=== PATIENT | male | born 1950 | race Caucasian/White ===

== ENCOUNTER → 2025-01-31 13:38 | Outpatient (REF) | payer OTHER, MEDICAID, SELFPAY ==
[2025-02-01 11:12] LABS: ALT (SGPT) 15 U/L (0-50); AST (SGOT) 21 U/L (17-59); Albumin 3.6 g/dl (3.5-5.0); Alkaline Phosphatase 46 U/L (38-126); Blood Urea Nitrogen 12 mg/dl (9-20); Calcium 9.2 mg/dl (8.4-10.2); Carbon Dioxide 26 mmol/L (22-30); Chloride 107 mmol/L (98-107); Glucose 101 mg/dl (70-99); Potassium 4.4 mmol/L (3.5-5.1); Sodium 137 mmol/L (135-145); Total Bilirubin 0.9 mg/dl (0.2-1.3); Total Protein 5.6 g/dl (6.3-8.2); eGFR > 60.00
[2025-02-01 11:50] LABS: Hematocrit 40.1 % (39.0-52.0); Hemoglobin 13.5 g/dL (13.0-18.0); Mean Corpuscular Volume 100.8 fL (80.0-94.0); Red Blood Cell Count 3.98 10^6/uL (4.70-6.10); White Blood Cell Count 9.2 10^3/uL (4.8-10.8)
[2025-02-01 11:51] LABS: Mean Corp Hgb Conc. 33.7 g/dL (33.0-37.0); Mean Corpuscular Hgb 33.9 pg (27.0-31.0); Mean Platelet Volume 11.4 fL (7.4-10.4); Platelet Count 150 10^3/uL (130-400); Red Cell Dist. Width 13.2 % (11.5-14.5)
== END ==
LOC: OLABN 13:38
PROVIDERS: ATTENDING PHYSICIAN Student in an Organized Health Care Education/Training Program
DX: I10 Essential (primary) hypertension (principal)
CPT/HCPCS: 36415; 80053; 85027

== ENCOUNTER → 2025-03-26 10:27 | Outpatient (REF) | payer OTHER, MEDICAID, SELFPAY ==
[2025-03-26 12:19] LABS: Hematocrit 38.6 % (39.0-52.0); Hemoglobin 12.7 g/dL (13.0-18.0); Mean Corp Hgb Conc. 32.9 g/dL (33.0-37.0); Mean Corpuscular Volume 98.5 fL (80.0-94.0); Nucleated Red Blood Cells % 0 % (-); Platelet Count 145 10^3/uL (130-400); Red Cell Dist. Width 13.5 % (11.5-14.5)
[2025-03-26 12:38] LABS: ALT (SGPT) 41 U/L (0-50); AST (SGOT) 23 U/L (17-59); Albumin 3.2 g/dl (3.5-5.0); Alkaline Phosphatase 55 U/L (38-126); Blood Urea Nitrogen 17 mg/dl (9-20); Calcium 8.7 mg/dl (8.4-10.2); Carbon Dioxide 25 mmol/L (22-30); Chloride 106 mmol/L (98-107); Glucose 114 mg/dl (70-99); Potassium 4.3 mmol/L (3.5-5.1); Sodium 137 mmol/L (135-145); Total Protein 5.5 g/dl (6.3-8.2); eGFR > 60.00
== END ==
LOC: OLABN 10:27
PROVIDERS: ATTENDING PHYSICIAN Student in an Organized Health Care Education/Training Program
DX: R50.9 Fever, unspecified (principal)
CPT/HCPCS: 36415; 80053; 85025

== ENCOUNTER 2025-03-26 17:18 | Inpatient (IN) | payer MEDICARE, OTHER, SELFPAY ==
[2025-03-26] VITALS (9 sets, daily range): BP systolic 75–130; BP diastolic 59–81
--- NOTE | 2025-03-26 14:07 | ED.GENMED ---
History of Present Illness
<Celestino Nielson PA-C - Last Filed: 03/26/25 15:56>
General
Chief Complaint: Blood Pressure Problem
Source: patient
Exam Limitations: none
Time Seen by Provider: 03/26/25 13:50
History of Present Illness
History of Present Illness:
74-year-old male with history of dementia presents from nursing facility with complaints of fatigue they noticed tachycardia fever and low blood pressure at the facility. He is a DNR. Patient is apparently at his cognitive baseline but cannot
provide any valuable history secondary to his dementia.
Phy Exam
<Celestino Nielson PA-C - Last Filed: 03/26/25 15:56>
Physical Exam
Physical Exam:
General: Well-developed male no acute respiratory distress
HEENT normocephalic face is symmetric
Heart: Tachycardic but regular lungs: Clear no wheeze
Abdomen is soft nontender
Extremities: No cyanosis
Neurologic exam: Alert oriented to person only following commands
Sepsis
<Celestino Nielson PA-C - Last Filed: 03/26/25 15:56>
Sepsis Screening
Sepsis Assessment: Sepsis
Sepsis Screen
Sepsis Screen: Sepsis
Date: 03/26/25
Time: 15:56
<Dylon Tabares MD - Last Filed: 03/27/25 15:05>
Sepsis Screen
Sepsis Screen: Sepsis
Date: 03/27/25
Time: 15:04
Course
<Celestino Nielson PA-C - Last Filed: 03/26/25 15:56>
Orders/Labs/Results
Orders:
Orders
03/26/25 Lunch
Cholesterol Lowering
At Your Request: Non-Participating
Cholesterol Lowering: Sodium, 2 Gram
03/26/25 13:57
Electrocardiogram (*1) Stat
Comment: ALREADY DONE IN ED
03/26/25 14:05
Straight cath- Treatment ONCE
03/26/25 14:06
CR Chest - 2 Views Urgent
Comment:
Reason For Exam: fever
03/26/25 14:07
CMP [Comprehensive Metabolic Panel] Urgent
COVID-19 Antigen Urgent
Source: Nasal Swab
Complete Blood Count/With Diff Urgent
Lactic Acid Q4H
Comment: CANCEL 2nd LACTIC ACID IF 1st LACTIC ACID IS LESS THAN 2
Troponin I Urgent
Blood Culture Q30M
SHARIFA Source: Blood/Venous
Specimen Description:
Blood Culture Q30M
SHARIFA Source: Blood/Venous
Specimen Description:
03/26/25 14:26
Urinalysis Reflex To Culture Urgent
Date Specimen was Collected: 03/26/25
Time Specimen was Collected: 14:06
Urine Microscopic Reflex Cult Urgent
03/26/25 14:45
0.9% Sodium Chloride 1000 ml [Nss] 1,000 ml IV BOLUS
03/26/25 14:54
Acetaminophen [Tylenol] 1,000 mg PO NOW STA
03/26/25 16:20
CT Chest PE Study Urgent
Comment: hypotension, tachycardia, SOB
Reason For Exam: PE
03/26/25 16:39
Admit/Transfer Patient As Directed
Co-Sign Provider:
Level of Care: Inpatient admission
Assign to:: IMU- Intermediate Care
Physician / Group: Bryanna Harvey - hospitalists
Diagnosis: acute COVID 19, Pneumonia
Reason for Hospitalization: acute COVID 19, Pneumonia
Expected length of stay greater than two midnights?: Yes
ELOS- Estimated Length of Stay in days: 3
I certify the patient meets the requirements for IP care: Yes
PRN Pain Medication Management As Directed
May give lesser potent ordered pain med per pt: Yes
preference::
Protocol:: Medication orders for pain may be administered in a
manner that supports deferring to patient preference
when the pt is:
- Requesting an ordered lesser potent pain medication.
Least to most potent pain medications are defined
as: acetaminophen < NSAID < tramadol < opioids
(morphine, oxycodone, hydromorphone).
- Requesting a lesser dose of the same medication IF
ORDERED.
- Requesting a less intrusive route of administration
if both routes are prescribed by the provider (PO <
IV).
03/26/25 16:40
Code Status As Directed
Resuscitation Status: Do not resuscitate
Reached after discussion with pt or family/Healthcare POA: Yes
DNR Bracelet Application ONCE
03/26/25 17:02
Troponin I Urgent
03/26/25 17:04
0.9% Sodium Chloride 1000 ml [Nss] 1,000 ml IV 100 mls/hr
03/26/25 17:42
Acetaminophen [Tylenol] 650 mg PO Q4HPRN PRN
Albuterol [ProAIR HFA INHALER] 2 puff INH R Q4HPRN PRN
Benzonatate [Tessalon Perles] 200 mg PO TIDPRN PRN
Bisacodyl [Dulcolax] 10 mg RECTAL [id number] PRN
Dexamethasone Sod Phosphate [Decadron] 6 mg IV DAILY
Docusate W/Senna [Senokot-S] 1 tablet PO BIDPRN PRN
Ondansetron Injectable [Zofran] 4 mg IV Q6HPRN PRN
Polyethylene Glycol Powder [Miralax] 17 grams PO DAILYPRN PRN
Remdesivir [Veklury] 200 mg 0.9% Sodium Chloride 250 ml [Nss] 210 ml IV ONCE
Patient has been symptomatic for </= 10 days?: Yes
Patient's SpO2 </= 94% on room air OR requiring oxygen?: Yes
03/26/25 17:42
Respiratory Culture/Gram Stain Routine
SHARIFA Source: Sputum
Specimen Description:
Activity As Directed
Activity Level: As Tolerated
Intake/ Output As Directed
Frequency: Per unit guidelines
Precautions As Directed
Type of Precautions: Novel Respiratory
Vital Signs As Directed
Frequency: Per unit guidelines
Weight As Directed
Frequency: Once
Comment: on admission
Rx Incentive Spirometry [RESP] Routine
Frequency: q1h while awake
Ot Eval And Treat Routine
Pt Eval And Treat Routine
Activity Level: As Tolerated
Speech Therapy Eval & Treat Routine
DX Deep Vein Thrombosis Video Routine
03/26/25 18:00
CefTRIAXone [Rocephin] 1,000 mg IV Q24H
Enoxaparin Sodium [Lovenox] 40 mg SC QPM
Rosuvastatin Calcium [Crestor] 5 mg PO QPM
03/26/25 20:00
Doxycycline [Vibramycin] 100 mg PO Q12
Guaifenesin [Mucinex] 600 mg PO Q12
Memantine HCl [Namenda] 10 mg PO BID
03/26/25 22:00
Baclofen [Lioresal] 5 mg PO HS
Donepezil HCl [Aricept] 10 mg PO HS
vortioxetine [Trintellix] 15 mg PO HS
03/26/25 22:51
Troponin I Q6H
03/27/25 05:21
Complete Blood Count/No Diff IN AM
Comprehensive Metabolic Panel IN AM
Magnesium IN AM
03/27/25 08:00
Acyclovir [Zovirax] 400 mg PO DAILY
Valsartan [Diovan] 80 mg PO DAILY
03/27/25 12:00
Remdesivir [Veklury] 100 mg 0.9% Sodium Chloride 250 ml [Nss] 230 ml IV DAILY@1200
03/28/25 06:00
Complete Blood Count/No Diff IN AM
Comprehensive Metabolic Panel IN AM
03/29/25 06:00
Complete Blood Count/No Diff IN AM
Comprehensive Metabolic Panel IN AM
Abnormal Lab Results
03/26/25 03/26/25 03/26/25
14:07 14:26 17:02
RBC 4.25 L 10^6/uL
(4.70-6.10)
MCV 97.6 H fL
(80.0-94.0)
MCH 33.2 H pg
(27.0-31.0)
MPV 11.3 H fL
(7.4-10.4)
Absolute Neuts (auto) 7.1 H 10^3/uL
(1.4-6.5)
Absolute Lymphs (auto) 0.4 L 10^3/uL
(1.2-3.4)
Absolute Monos (auto) 1.3 H 10^3/uL
(0.1-0.6)
Neutrophils % 80.1 H %
(42.2-75.2)
Lymphocytes % 4.4 L %
(20.5-51.1)
Monocytes % 14.0 H %
(1.7-9.3)
Glucose 102 H mg/dl
(70-99)
Troponin I 0.077 H* ng/ml 0.071 H* ng/ml
Urine Ketones 1+ A
(Negative)
Urine Urobilinogen 3+ A
(Neg - 1+)
Urine Bacteria (Reflex) Few A
(Negative)
Urine Albumin (Reflex) 2+ A
(Neg - Trace)
SARS-CoV-2 Antigen Positive A
(Negative)
03/26/25 14:07
03/26/25 14:07
Vital Signs
Initial and Last Documented VS:
Initial Vital Signs
Pulse Resp BP Pulse Ox
147 19 130/81 93
03/26/25 13:55 03/26/25 13:55 03/26/25 13:55 03/26/25 13:55
Last Documented Vital Signs
Temp Pulse Resp BP Pulse Ox
98.3 F 144 28 96/70 94
03/27/25 11:44 03/27/25 13:00 03/27/25 13:00 03/27/25 13:00 03/27/25 13:00
<Dylon Tabares MD - Last Filed: 03/27/25 15:05>
Orders/Labs/Results
Orders:
Orders
03/26/25 Lunch
Cholesterol Lowering
At Your Request: Non-Participating
Cholesterol Lowering: Sodium, 2 Gram
03/26/25 13:57
Electrocardiogram (*1) Stat
Comment: ALREADY DONE IN ED
03/26/25 14:05
Straight cath- Treatment ONCE
03/26/25 14:06
CR Chest - 2 Views Urgent
Comment:
Reason For Exam: fever
03/26/25 14:07
CMP [Comprehensive Metabolic Panel] Urgent
COVID-19 Antigen Urgent
Source: Nasal Swab
Complete Blood Count/With Diff Urgent
Lactic Acid Q4H
Comment: CANCEL 2nd LACTIC ACID IF 1st LACTIC ACID IS LESS THAN 2
Troponin I Urgent
Blood Culture Q30M
SHARIFA Source: Blood/Venous
Specimen Description:
Blood Culture Q30M
SHARIFA Source: Blood/Venous
Specimen Description:
03/26/25 14:26
Urinalysis Reflex To Culture Urgent
Date Specimen was Collected: 03/26/25
Time Specimen was Collected: 14:06
Urine Microscopic Reflex Cult Urgent
03/26/25 14:45
0.9% Sodium Chloride 1000 ml [Nss] 1,000 ml IV BOLUS
03/26/25 14:54
Acetaminophen [Tylenol] 1,000 mg PO NOW STA
03/26/25 16:20
CT Chest PE Study Urgent
Comment: hypotension, tachycardia, SOB
Reason For Exam: PE
03/26/25 16:39
Admit/Transfer Patient As Directed
Co-Sign Provider:
Level of Care: Inpatient admission
Assign to:: IMU- Intermediate Care
Physician / Group: Bryanna Harvey - hospitalists
Diagnosis: acute COVID 19, Pneumonia
Reason for Hospitalization: acute COVID 19, Pneumonia
Expected length of stay greater than two midnights?: Yes
ELOS- Estimated Length of Stay in days: 3
I certify the patient meets the requirements for IP care: Yes
PRN Pain Medication Management As Directed
May give lesser potent ordered pain med per pt: Yes
preference::
Protocol:: Medication orders for pain may be administered in a
manner that supports deferring to patient preference
when the pt is:
- Requesting an ordered lesser potent pain medication.
Least to most potent pain medications are defined
as: acetaminophen < NSAID < tramadol < opioids
(morphine, oxycodone, hydromorphone).
- Requesting a lesser dose of the same medication IF
ORDERED.
- Requesting a less intrusive route of administration
if both routes are prescribed by the provider (PO <
IV).
03/26/25 16:40
Code Status As Directed
Resuscitation Status: Do not resuscitate
Reached after discussion with pt or family/Healthcare POA: Yes
DNR Bracelet Application ONCE
03/26/25 17:02
Troponin I Urgent
03/26/25 17:04
0.9% Sodium Chloride 1000 ml [Nss] 1,000 ml IV 100 mls/hr
03/26/25 17:42
Acetaminophen [Tylenol] 650 mg PO Q4HPRN PRN
Albuterol [ProAIR HFA INHALER] 2 puff INH R Q4HPRN PRN
Benzonatate [Tessalon Perles] 200 mg PO TIDPRN PRN
Bisacodyl [Dulcolax] 10 mg RECTAL [id number] PRN
Dexamethasone Sod Phosphate [Decadron] 6 mg IV DAILY
Docusate W/Senna [Senokot-S] 1 tablet PO BIDPRN PRN
Ondansetron Injectable [Zofran] 4 mg IV Q6HPRN PRN
Polyethylene Glycol Powder [Miralax] 17 grams PO DAILYPRN PRN
Remdesivir [Veklury] 200 mg 0.9% Sodium Chloride 250 ml [Nss] 210 ml IV ONCE
Patient has been symptomatic for </= 10 days?: Yes
Patient's SpO2 </= 94% on room air OR requiring oxygen?: Yes
03/26/25 17:42
Respiratory Culture/Gram Stain Routine
SHARIFA Source: Sputum
Specimen Description:
Activity As Directed
Activity Level: As Tolerated
Intake/ Output As Directed
Frequency: Per unit guidelines
Precautions As Directed
Type of Precautions: Novel Respiratory
Vital Signs As Directed
Frequency: Per unit guidelines
Weight As Directed
Frequency: Once
Comment: on admission
Rx Incentive Spirometry [RESP] Routine
Frequency: q1h while awake
Ot Eval And Treat Routine
Pt Eval And Treat Routine
Activity Level: As Tolerated
Speech Therapy Eval & Treat Routine
DX Deep Vein Thrombosis Video Routine
03/26/25 18:00
CefTRIAXone [Rocephin] 1,000 mg IV Q24H
Enoxaparin Sodium [Lovenox] 40 mg SC QPM
Rosuvastatin Calcium [Crestor] 5 mg PO QPM
03/26/25 20:00
Doxycycline [Vibramycin] 100 mg PO Q12
Guaifenesin [Mucinex] 600 mg PO Q12
Memantine HCl [Namenda] 10 mg PO BID
03/26/25 22:00
Baclofen [Lioresal] 5 mg PO HS
Donepezil HCl [Aricept] 10 mg PO HS
vortioxetine [Trintellix] 15 mg PO HS
03/26/25 22:51
Troponin I Q6H
03/27/25 05:21
Complete Blood Count/No Diff IN AM
Comprehensive Metabolic Panel IN AM
Magnesium IN AM
03/27/25 08:00
Acyclovir [Zovirax] 400 mg PO DAILY
Valsartan [Diovan] 80 mg PO DAILY
03/27/25 12:00
Remdesivir [Veklury] 100 mg 0.9% Sodium Chloride 250 ml [Nss] 230 ml IV DAILY@1200
03/28/25 06:00
Complete Blood Count/No Diff IN AM
Comprehensive Metabolic Panel IN AM
03/29/25 06:00
Complete Blood Count/No Diff IN AM
Comprehensive Metabolic Panel IN AM
Abnormal Lab Results
03/26/25 03/26/25 03/26/25
14:07 14:26 17:02
RBC 4.25 L 10^6/uL
(4.70-6.10)
MCV 97.6 H fL
(80.0-94.0)
MCH 33.2 H pg
(27.0-31.0)
MPV 11.3 H fL
(7.4-10.4)
Absolute Neuts (auto) 7.1 H 10^3/uL
(1.4-6.5)
Absolute Lymphs (auto) 0.4 L 10^3/uL
(1.2-3.4)
Absolute Monos (auto) 1.3 H 10^3/uL
(0.1-0.6)
Neutrophils % 80.1 H %
(42.2-75.2)
Lymphocytes % 4.4 L %
(20.5-51.1)
Monocytes % 14.0 H %
(1.7-9.3)
Glucose 102 H mg/dl
(70-99)
Troponin I 0.077 H* ng/ml 0.071 H* ng/ml
Urine Ketones 1+ A
(Negative)
Urine Urobilinogen 3+ A
(Neg - 1+)
Urine Bacteria (Reflex) Few A
(Negative)
Urine Albumin (Reflex) 2+ A
(Neg - Trace)
SARS-CoV-2 Antigen Positive A
(Negative)
03/26/25 14:07
03/26/25 14:07
Vital Signs
Initial and Last Documented VS:
Initial Vital Signs
Pulse Resp BP Pulse Ox
147 19 130/81 93
03/26/25 13:55 03/26/25 13:55 03/26/25 13:55 03/26/25 13:55
Last Documented Vital Signs
Temp Pulse Resp BP Pulse Ox
98.3 F 144 28 96/70 94
03/27/25 11:44 03/27/25 13:00 03/27/25 13:00 03/27/25 13:00 03/27/25 13:00
<Celestino Nielson PA-C - Last Filed: 03/26/25 15:56>
MDM/Problems Addressed
Differential Diagnosis Includes:
Reported fever with tachycardia and low blood pressure. Consider infectious source. Will check urine COVID chest x-ray labs cultures and lactic
<Celestino Nielson PA-C - Last Filed: 03/26/25 15:56>
*Pulse Oximetry
SaO2: 98
Oxygen Mode of Delivery: Room air
Patient hypoxic: no
*Critical Care Note
Total Time (30-74mins, 75-104mins- exclusive of procedures): Not Applicable
<Celestino Nielson PA-C - Last Filed: 03/26/25 15:56>
Update Note
Update Note:
Spouse and son is now in the room. Gathered additional history from them. He has a history of multiple myeloma. He has been complaining of ongoing back pain for the past several weeks. He has changed recently as far as his cognition becoming
more anxious and agitated but has not become violent.
COVID test is positive. Chest x-ray pending. Slight elevation in troponin may be demand related from persistently elevated heart rate. Discussed with ED attending
ED Attending Note
<Celestino Nielson PA-C - Last Filed: 03/26/25 15:56>
-
Portions of this chart may have been created with voice recognition software.� Occasional wrong word or��sound alike� substitutions may have occurred due to the inherent limitations of voice recognition software.
<Dylon Tabares MD - Last Filed: 03/27/25 15:05>
ED Attending Note
Patient seen and examined by attending physician: Yes
ED Attending Note:
Patient with history of dementia, presents to ED from snf secondary to worsening chronic back pain due to multiple myeloma, along with hypotension and tachycardia. Patient was found to be febrile at snf prior to transfer. Per
family, patient also has had nonproductive cough over the past 2 days. Denies vomiting or diarrhea. Patient upon arrival has no complaints.
Physical Exam
General: no apparent distress, not acutely ill. afebrile
Head: nc/at. eomi
Neck: supple. no meningeal signs.
Heart: tachycardic
Lungs: no acute respiratory distress. diminished breath sounds bilaterally
Abdomen: normal bowel sounds. not tender.
Neuro: alert and oriented x 3. no focal neurological deficits
Skin: no rash
Psychiatric: well kept. interactive and cooperative
Extremities: no edema. no calf tenderness
Patient is DNR/DNI, confirmed by family at bedside.
History and exam consistent with likely sepsis, secondary to COVID-19. Patient is alert and awake, without complaints. However, he remains hypotensive and tachycardic. Will start IV fluids and admit patient for further evaluation and treatment.
Discharge Plan
Departure
Patient Disposition: Admit
Date of Disposition: 03/26/25
Time of Disposition: 15:54
Presentation/result/management discussed w/ accepting MD/DO: Hospitalist
Discharge Problem:
COVID-19
Interventions
Interventions:
*Risk Screen - Suicide Last Done: 03/26/25 13:55
*General Assessment Last Done: 03/26/25 13:55
*Neglect/Abuse Screening Last Done: 03/26/25 13:55
*ED- Fall Risk Assessment Last Done: 03/26/25 13:55
*ED COVID-19 Vaccine History Last Done: 03/26/25 13:55
*Nursing Disposition Last Done: 03/26/25 17:51
ED- Cardiac Assessment Last Done: 03/26/25 13:55
ED- Neurological Assessment Last Done: 03/26/25 13:55
ED- Pulmonary Assessment Last Done: 03/26/25 13:55
Discharge Date and Time
Discharge Date/Time: 03/26/25 17:52
[2025-03-26 14:14] LABS: Hematocrit 41.5 % (39.0-52.0); Hemoglobin 14.1 g/dL (13.0-18.0); Mean Corp Hgb Conc. 34.0 g/dL (33.0-37.0); Mean Corpuscular Volume 97.6 fL (80.0-94.0); Nucleated Red Blood Cells % 0 % (-); Platelet Count 159 10^3/uL (130-400); Red Cell Dist. Width 13.6 % (11.5-14.5)
[2025-03-26 14:43] LABS: ALT (SGPT) 43 U/L (0-50); AST (SGOT) 23 U/L (17-59); Albumin 3.7 g/dl (3.5-5.0); Alkaline Phosphatase 53 U/L (38-126); Blood Urea Nitrogen 17 mg/dl (9-20); Calcium 9.1 mg/dl (8.4-10.2); Carbon Dioxide 25 mmol/L (22-30); Chloride 104 mmol/L (98-107); Glucose 102 mg/dl (70-99); Potassium 4.3 mmol/L (3.5-5.1); Sodium 136 mmol/L (135-145); Total Protein 6.4 g/dl (6.3-8.2); eGFR > 60.00
[2025-03-26 14:44] LABS: Troponin I 0.077 ng/ml
[2025-03-26 14:46] LABS: Urine Character Clear (Clear)
[2025-03-26] MEDS: NSS 1000 IV ×4 (14:57→22:02)
[2025-03-26] MEDS: TYLENOL 1000 MG PO (15:00)
[2025-03-26 15:03] LABS: Urine Red Blood Cell 0-2 /HPF (0-2)
[2025-03-26 15:11] LABS: COVID-19 Antigen Positive (Negative)
--- NOTE | 2025-03-26 16:30 | HPS.HSE ---
Family Physician
-
Family Physician: Jovan Beasley
Chief Complaint
-
Shorntess of breath
History of Present Illness
74 y/o M hx of dementia, multiple myeloma with osteolytic lesions, HLD presents to ER from [facility] with back pain, tachycardia and hypotension. Patient also noted to have fever for a few days and sore throat, feeling cold/tired. He is more
confused than baseline and was briefly agitated. Given patients dementia - history is limited at present but grossly denies any other complaints. In ER, testing revealed COVID with possible LLL PNA. Patient admitted for hydration and treatment.
Medical History
Past Medical History
Past Medical History: Reports Other (dementia, multiple myeloma with osteolytic lesions, HLD)
Past Surgical History: Reports None
Social History
Unable to obtain full social history at this time due to: Dementia
Family History
Family History: Not pertinent
Allergies / Home Medications
Allergies reflects when Allergies were last updated in [employer].
Home Medications with original date entered in [employer]
Allergy/Medication List:
Allergies
Allergy/AdvReac Type Severity Reaction Status Date / Time
No Known Allergies Allergy Unverified 03/26/25 14:06
Home Medications
acetaminophen 325 mg tablet (Tylenol) 650 mg PO Q4HPRN PRN mild pain 03/26/25
acyclovir 400 mg tablet 400 mg PO DAILY 03/26/25
baclofen 5 mg tablet 5 mg PO HS 03/26/25
bisacodyl 10 mg rectal suppository (Dulcolax (bisacodyl)) 10 mg KS [id number] PRN if no bm aftr mom 03/26/25
calcium 600 mg (as carbonate)-vitamin D3 10 mcg (400 unit) tablet (Calcium 600 + D(3)) 1 tab PO DAILY 03/26/25
cholecalciferol (vitamin D3) 50 mcg (2,000 unit) capsule (Vitamin D3) 50 mcg PO DAILY 03/26/25
donepezil 10 mg tablet 10 mg PO HS 03/26/25
magnesium hydroxide 400 mg/5 mL oral suspension (Milk of Magnesia) 2,400 mg PO HSPRN PRN constipation 03/26/25
memantine 10 mg tablet 10 mg PO BID 03/26/25
morphine 15 mg immediate release tablet 15 mg PO Q4HPRN PRN severe pains 03/26/25
morphine 15 mg tablet,extended release 15 mg PO Q12H 03/26/25
polyethylene glycol 3350 17 gram oral powder packet (Miralax) 17 g PO DAILY 03/26/25
rosuvastatin 5 mg tablet (Crestor) 5 mg PO QPM 03/26/25
therapeutic multivitamin 1 tab PO DAILY 03/26/25
valsartan 80 mg tablet 80 mg PO DAILY 03/26/25
vortioxetine 5 mg tablet (Trintellix) 15 mg PO HS 03/26/25
Review of Systems
-
Unable to obtain full review of systems at this time due to: Acuity
Physical Exam
Vital Signs
Vital Signs
Temp Pulse Resp BP Pulse Ox
99.0 F 137 20 90/63 97
03/26/25 14:05 03/26/25 16:00 03/26/25 16:00 03/26/25 15:00 03/26/25 15:45
Physical Exam
General: No Apparent Distress
HEENT: NormoCephalic and Anicteric
Respiratory: Wheezes
Cardiac: S1/S2, Regular Rhythm and Tachycardia
Neuro: Awake
Psych: Confused and Apparent Dementia
Laboratory Results
-
03/26/25 14:07
03/26/25 14:07
Laboratory Results
Lactic Acid Cancelled 03/26/25 18:15
Total Bilirubin 1.1 mg/dl (0.2-1.3) 03/26/25 14:07
AST 23 U/L (17-59) 03/26/25 14:07
ALT 43 U/L (0-50) 03/26/25 14:07
Alkaline Phosphatase 53 U/L (38-126) 03/26/25 14:07
Troponin I 0.077 ng/ml H* 03/26/25 14:07
Data Reviewed
-
Lab Data: Labs Reviewed by me
Impression/Plan
-
Assessment:
Sepsis POA (tachycardia, hypotension)
Acute COVID-19 infection
Acute LL PNA with wheezing
- check CT-PE study given prolonged hypotension, tachycardia and COVID+ status
- start Remdesivir, steroids, CAP treatment
- monitor O2 - currently on none
- IS/Acapella/Mucolytics as able (hx of dementia with confusion)
TME in seting of COVID/PNA
Underlying history of dementia
- continue dementia meds
Nonischemic myocardial injury
- trop trends to peak
Hx of multiple myeloma with osteolytic lesions
- hold Morphine
- continue Baclofen HS
- on Acyclovir daily prophylaxis
Essential HTN - continue ARB
HLD
DVT ppx: Lovenox
Code: Full
[2025-03-26 17:47] LABS: Troponin I 0.071 ng/ml
[2025-03-26] MEDS: CRESTOR 5 MG PO (18:09)
[2025-03-26] MEDS: DECADRON 6 MG IV (18:09)
[2025-03-26] MEDS: STERILE WATER FOR INJECTION 10 ML IV (18:10)
[2025-03-26] MEDS: ROCEPHIN 1000 MG IV (18:10)
--- NOTE | 2025-03-26 18:28 | PTCARENOTE ---
Patient arrived to IMU from ED. AOx1 (self). Bed alarm on and audible. Sinus tachy on monitor with HR in 140's. BP 80's/60's. MAP >65. Bolus started per order. Dr. Harvey aware. On RA with SpO2 greater than 92%. Upon arrival to the floor, patient
urinated 300 cc. Patient c/o throat pain. Not due for PRN tylenol yet. Precautions maintained. Call robertson within reach, bed in lowest position, and bed of wheels locked.
[2025-03-26] MEDS: LOVENOX 40 MG SC (18:37)
--- NOTE | 2025-03-26 18:38 | RESPNOTE ---
Patient confused and not able to perform Incentive spirometer maneuver.
[2025-03-26] MEDS: VEKLURY 250 MG IV (20:37)
[2025-03-26] MEDS: LIORESAL 5 MG PO (20:37)
[2025-03-26] MEDS: NAMENDA 10 MG PO (20:37)
[2025-03-26] MEDS: ARICEPT 10 MG PO (20:37)
[2025-03-26] MEDS: VIBRAMYCIN 100 MG PO (20:37)
[2025-03-26] MEDS: MUCINEX 600 MG PO (20:37)
[2025-03-26 23:33] LABS: Troponin I 0.057 ng/ml
[2025-03-27] VITALS (21 sets, daily range): BP systolic 86–117; BP diastolic 60–86; PULSE 145–146; O2SAT 98
--- NOTE | 2025-03-27 04:23 | PTCARENOTE ---
Addendum entered by Justina Oseguera RN 03/27/25 06:19:
EKG shared with attending overnight- showed sinus tach in the 140s with BBB. Will continue to monitor.
Original Note:
Patient brought down for CT pe study overnight. Results reviewed by provider. EKG obtained as ordered. Afebrile. Remains sinus tach in the 130s-140s. BPs soft. Patient confused and gets OOB without ringing the call robertson. Bed alarm in place. Will
continue to monitor.
[2025-03-27 05:44] LABS: Hematocrit 37.0 % (39.0-52.0); Hemoglobin 12.7 g/dL (13.0-18.0); Mean Corp Hgb Conc. 34.3 g/dL (33.0-37.0); Mean Corpuscular Volume 96.9 fL (80.0-94.0); Platelet Count 139 10^3/uL (130-400); Red Cell Dist. Width 13.5 % (11.5-14.5)
[2025-03-27 06:08] LABS: ALT (SGPT) 33 U/L (0-50); AST (SGOT) 24 U/L (17-59); Albumin 3.1 g/dl (3.5-5.0); Alkaline Phosphatase 46 U/L (38-126); Blood Urea Nitrogen 11 mg/dl (9-20); Calcium 8.1 mg/dl (8.4-10.2); Carbon Dioxide 16 mmol/L (22-30); Chloride 115 mmol/L (98-107); Glucose 133 mg/dl (70-99); Magnesium 2.3 mg/dl (1.6-2.3); Potassium 4.7 mmol/L (3.5-5.1); Sodium 138 mmol/L (135-145); Total Protein 5.6 g/dl (6.3-8.2); eGFR > 60.00
--- NOTE | 2025-03-27 07:56 | W.PN.HOSP.TC ---
Today's Communication/Plan
-
IV fluid.
Continue remdesivir
Assessment / Plan
Assessment / Plan
Impression:
74 y/o M hx of dementia, multiple myeloma with osteolytic lesions, HLD presents to ER from [facility] with back pain, tachycardia and hypotension. Patient also noted to have fever for a few days and sore throat, feeling cold/tired. He is more
confused than baseline and was briefly agitated. Given patients dementia - history was limited at present but grossly denies any other complaints. In ER, testing revealed COVID with possible LLL PNA. Patient admitted for hydration and treatment
Assessment/plan:
Severe sepsis with acute organ dysfunction POA (tachycardia, hypotension)
Source of infection acute COVID-19 infection
Acute LL PNA with wheezing
- check CT-PE study given prolonged hypotension, tachycardia and COVID+ status
- start Remdesivir, steroids, CAP treatment
- monitor O2 - currently on none
- IS/Acapella/Mucolytics as able (hx of dementia with confusion)
- Acute organ dysfunction in form of acute metabolic encephalopathy, elevated troponin.
Persistent hypotension/sinus tachycardia
IV fluid.
May consider low-dose digoxin
Acute metabolic encephalopathy in setting of COVID/PNA
Underlying history of dementia
- continue dementia meds
Nonischemic myocardial injury
- trop trends to peak
Hx of multiple myeloma with osteolytic lesions
- hold Morphine
- continue Baclofen HS
- on Acyclovir daily prophylaxis
Essential HTN -
continue ARB
HLD
continue statin
CODE STATUS: Full code
DVT prophylaxis: Lovenox
Diet: cardiac diet
Disposition: IVF.
Total time spent on today's encounter was 65 minutes which included time spent in counseling the patient/family regarding diagnosis and treatment plan as listed above, goals of care, and symptom management. Case was discussed with nursing staff,
specialists, and care coordinators/case management. All labs and imaging personally reviewed by me. Remainder the time spent in detailed review of previous records, lab data, imaging, and other medical provider documentation.
Anticipated Discharge: > 48 hours
Subjective/Interval History
-
Date of Service: March 27, 2025
Patient seen and examined at bedside, denies any chest pain, still coughing with shortness of breath, awake but not fully oriented.
Objective Data
-
Labs:
Laboratory Results
03/27/25
05:21
WBC 7.5
Hgb 12.7 L
Hct 37.0 L
Plt Count 139
Sodium 138
Potassium 4.7
Chloride 115 H
Carbon Dioxide 16 L
BUN 11
Creatinine 0.6 L
Glucose 133 H
Calcium 8.1 L
Total Bilirubin 0.7
AST 24
ALT 33
Alkaline Phosphatase 46
Vital Signs:
Vital Signs
Temp Pulse Resp BP Pulse Ox
98.4 F 139 16 86/72 97
03/27/25 07:35 03/27/25 06:03 03/27/25 06:03 03/27/25 06:03 03/27/25 06:03
I&O
03/26/25 03/27/25 03/28/25
06:59 06:59 06:59
Intake Total 1450 / 1450
Output Total 450 / 450
Balance 1000 / 1000
Physical Exam
-
General: Well Developed, Well Nourished, No Apparent Distress and Comfortable
HEENT: Normocephalic, Atraumatic, Moist Mucous Membranes, No Ptosis, PERRLA and Nose Appears Normal
Respiratory: Wheezes, Rales, Rhonchi and Non Labored Respirations
Cardiac: Regular Rhythm and S1/S2
Breast: Deferred by me
GI: Soft, Nontender, Nondistended and Normal Bowel Sounds
Genito-urinary: No Costovertebral Tender
Musculoskeletal: No Clubbing, No Cyanosis and No Edema
Skin: Warm
Neuro: Awake
Psych: Calm and Confused
Data Reviewed
-
Diagnostic Radiology: Image personally visualized and interpreted and Report Reviewed by me
CT Scan: Image personally visualized and interpreted and Report Reviewed by me
Ultrasound: Image personally visualized and interpreted and Report Reviewed by me
MRI: Image personally visualized and interpreted and Report Reviewed by me
Medical Tests (Nuc Med, Echo etc): Image personally visualized and interpreted and Report Reviewed by me
Labs: Labs Reviewed by me
Old Records: Reviewed
[2025-03-27] MEDS: NSS 250 IV (09:08)
[2025-03-27] MEDS: DECADRON 6 MG IV (09:09)
[2025-03-27] MEDS: NSS 1000 IV (09:09)
[2025-03-27] MEDS: MUCINEX PO (09:10)
[2025-03-27] MEDS: VEKLURY 250 MG IV (11:28)
[2025-03-27] MEDS: SODIUM BICARBONATE 650 MG PO (11:28)
[2025-03-27] MEDS: NAMENDA 10 MG PO ×2 (11:28→20:17)
[2025-03-27] MEDS: ZOVIRAX 400 MG PO (11:28)
[2025-03-27] MEDS: VIBRAMYCIN 100 MG PO ×2 (11:28→20:17)
--- NOTE | 2025-03-27 11:39 | CM ---
CM spoke with [facility] admissions/Anali
Pt a new LTC resident at [facility] in their dementia unit with MA bed-hold
Call with nursing cely/Sebastian [phone]
Pt is ambulatory without AD at supervision level
He follows simple commands and is able to feed self and perform grooming tasks with coaxing and cueing
He requires assistance with bathing and dressing
PCP- Randall Juares
Rx- [facility]
VM left for son/Luis introducing self and explaining role
Pt listed as [facility] primary and [place] Medicaid Access secondary
Per [facility] admissions, pt is Medicare A/B primary and [facility] MA secondary
She noted [facility] termed 02/19
Call with admissions who will look into insurance
Return SNF referral sent to [facility] via [facility]
Discharge Disposition- return to [facility] for LTC
--- NOTE | 2025-03-27 11:49 | PTOTSP ---
Speech Therapy Evaluation:
Pt with acute on chronic risk factors of dysphagia including hx of Dementia, compounded by generalized weakness in the setting of acute COVID 19 infection with pneumonia. At bedside, mild oral deficits noted, however suspect largely in relation to
lethargy. No overt s/sx of aspiration observed across session. Risk of developing pulmonary complication from aspiration increased given impaired respiratory status (shortness of breath, pneumonia), compromised immune system (multiple myeloma), and
current dependence for feeding/oral care. Currently, WBC WNL, pt afebrile, and on room air. Pt without hx of dysphagia.
Recommend:
1. Continue regular solids and thin liquids
2. Medications crushed in puree
3. Strict aspiration precautions
4. Direct supervision with intake. Only feed when awake, alert, accepting
5. PHOTOGRAPHIC PLATEMAKER to follow to monitor tolerance of diet and determine if pt would benefit from instrumental assessment
--- NOTE | 2025-03-27 12:01 | PTCARENOTE ---
Assumed care of patient this morning. He is drowsy, but wakes to voice, oriented to himself only. His HR has been elevated in 140s and BP low, is aware, gave 250 cc bolus this morning. was updated this afternoon and ordered another
500 cc bolus and Midodrine, see MAR. Pt continent and up to BSC, voided and had BM. Pt not wanting to eat much. Pt took pills crushed in applesauce, nightshift RN reported pt was chewing pills. Pt's family at bedside and updated. Assessment, care
and VS as charted.
[2025-03-27] MEDS: NSS 500 IV (12:30)
--- NOTE | 2025-03-27 14:16 | PN.CDI ---
CDI
- -
CDI:
Physician Documentation Request
Admit Date: 03/26/25 17:18
Dear Doctor Nisha,
Please review the following and provide your response in the progress notes.
Clinical Indicators:
PN, 8/
#Severe sepsis with acute organ dysfunction POA (tachycardia, hypotension)
#...Source of infection acute COVID-19 infection
#...Acute LL PNA with wheezing
#...- start Remdesivir, steroids, CAP treatment
Medications
Ceftriaxone Sodium (Ceftriaxone 1000 Mg / 10 Ml Vial) 1,000 mg IV Q24H KATERINA
Last Admin: 03/26/25 18:10 Dose: 1,000 mg
Doxycycline Hyclate (Doxycycline 100 Mg Capsule) 100 mg PO Q12 KATERINA
Last Admin: 03/27/25 11:28 Dose: 100 mg
- monitor O2 - currently on none
Based on the above and your clinical assessment, please clarify the specificity regarding the known, suspected or likely type of pneumonia treated?
Bacterial Pneumonia
Viral Pneumonia - indicate parainfluenza, RSV, COVID, adenovirus, influenza (indicate type) etc.
Other (please specify)
Use of terms such as suspected, likely, concern for, or probable (associated with a specific diagnosis that is being evaluated, monitored, or treated as if it exists) are acceptable and can be coded in the inpatient setting, when documented at the
time of discharge.
Thank you,
Monique Laura RN BSN CCDS
CDI Specialist
Please contact via tiger text
Please use your independent medical judgment in providing your response.
--- NOTE | 2025-03-27 16:40 | PTCARENOTE ---
Updated on pt's low BP and high HR. HR still sustaining in 140s. Order for Digoxin x1, see MAR.
[2025-03-27] MEDS: ROCEPHIN 1000 MG IV (17:05)
[2025-03-27] MEDS: LANOXIN 250 MCG PO (17:05)
[2025-03-27] MEDS: STERILE WATER FOR INJECTION 10 ML IV (17:05)
[2025-03-27] MEDS: CRESTOR 5 MG PO (17:06)
[2025-03-27] MEDS: LOVENOX 40 MG SC (17:06)
[2025-03-27] MEDS: TYLENOL 650 MG PO (20:16)
[2025-03-27] MEDS: MUCINEX 600 MG PO (20:17)
[2025-03-27] MEDS: ARICEPT 10 MG PO (20:17)
[2025-03-27] MEDS: LIORESAL 5 MG PO (20:17)
[2025-03-27] MEDS: NSS IV (21:06)
--- NOTE | 2025-03-27 23:31 | W.PN.UPDATE ---
Addendum entered and electronically signed by JEANNE Hartman 03/28/25 02:58:
0100 on monitor RN reporting 2 pauses (4.5 sec and approx 3.45 sec) then rate returned back to 145. Will check labs. Pt bp remains soft but stable. and pt 98% room air.
As labs drawn pt did report to RN 'chest tight' RR went from 18-30 and feeling went away. Trop added to labs.
0200 labs reviewed. Trops remain same as previous. Since pt not receiving normal pain meds for multiple myeloma due to hypotension will order small dose toradol for pain.
Original Note:
Update Note
Progress Note Update
2229 Consult placed to cardiology (Dr mckeon) for persistent elevated HR 130-140s since admit and despite digoxin po today. EKG sent over for review- likely atypical atach. Pt also with ongoing hypotension started on midodrine 10mg tid today. BPs
90s-100s/70s With Good MAP >65. PT relatively asymptomatic (pt with dementia).
Case discussed via TT with Dr Mckeon: As long as pt stable and MAps stable no intervention needed at this time. If pt becomes more hypotense of hemodynamically unstable suggests low dose levo to maintain bp support and add amio. Will eval pt in am
and decide on further interventions.
[2025-03-28] VITALS (15 sets, daily range): BP systolic 90–122; BP diastolic 58–109
--- NOTE | 2025-03-28 01:20 | PTCARENOTE ---
pt with 4.2 sec pause on monitor followed by 3 beats and then a 3.4 second pause, with HR returning back to 140-150s after this. PRESS TOOL MAKER notified via tiger text. CBC, CMP, and mag drawn and sent to lab.
--- NOTE | 2025-03-28 02:09 | PTCARENOTE ---
While finishing up labwork, pt looks at me and says 'its getting tight its getting tight'. This RN asked what was getting tight. Pt pointed to his chest and said it felt like a band was tightening around his chest. As this is happening, pt RR went
from 18 to 35 and appeared markedly SOB, stating 'I feel like I can't catch my breath'. Pt stated that he has felt this before and that 'it will go away in a little bit'. A few seconds later, his RR started to lower and he stated that the tightness
was resolving. HR, rhythm, and SaO2 unchanged through the entire event. LOGISTICS TEAM LEAD notified via tiger text, troponin and coags drawn and sent to lab.
[2025-03-28 02:19] LABS: APTT 36.9 Sec (23.4-35.0)
[2025-03-28 02:28] LABS: ALT (SGPT) 26 U/L (0-50); AST (SGOT) 18 U/L (17-59); Albumin 2.9 g/dl (3.5-5.0); Alkaline Phosphatase 50 U/L (38-126); Blood Urea Nitrogen 16 mg/dl (9-20); Calcium 8.2 mg/dl (8.4-10.2); Carbon Dioxide 21 mmol/L (22-30); Chloride 114 mmol/L (98-107); Estimated Creatinine Clearance 101 ml/min; Glucose 115 mg/dl (70-99); Hematocrit 36.9 % (39.0-52.0); Hemoglobin 12.6 g/dL (13.0-18.0); Magnesium 2.1 mg/dl (1.6-2.3); Mean Corp Hgb Conc. 34.1 g/dL (33.0-37.0); Mean Corpuscular Volume 98.4 fL (80.0-94.0); Nucleated Red Blood Cells % 0 % (-); Platelet Count 167 10^3/uL (130-400); Potassium 3.8 mmol/L (3.5-5.1); Red Cell Dist. Width 13.6 % (11.5-14.5); Sodium 141 mmol/L (135-145); Total Protein 5.1 g/dl (6.3-8.2); eGFR > 60.00
[2025-03-28 02:45] LABS: Troponin I 0.060 ng/ml
[2025-03-28] MEDS: NSS 1000 IV ×2 (07:32→16:35)
--- NOTE | 2025-03-28 07:51 | CON.CAR ---
Addendum entered and electronically signed by Noah Arce MD 03/28/25 10:20:
I saw and examined the patient.
The SERVICE CAR OPERATOR or PA's note was reviewed and I agree with the note.
Comment: Awake but confused
Neck: Supple, no JVD, HJR, carotids +2 B/L, no bruits bilaterally.
Heart: Non displaced PMI, regular, tachycardic, no murmurs, No S3, S4, no rubs.
Lungs: Scattered rhonchi
Abdomen: Normal bowel sounds, soft, non-tender, non-distended.
Extremities: No clubbing, cyanosis or edema bilaterally.
Neuro: Awake but confused
Misha has a history of dementia and resident [facility], multiple myeloma, hypertension, hyperlipidemia. He presented with tachycardia hypotension and shortness of breath. He is now COVID-positive and chest x-ray reveals pneumonia.
Cardiology is consulted for persistent tachycardia with relative hypotension limiting treatment. He denies chest pain, short breath, or palpitations but is a poor historian due to dementia.
Appears to be rapid atrial flutter. Hypotension is limited medications. Will try digoxin and also load with amiodarone orally and potentially IV as well. Might consider anticoagulation as he is in a supervised setting. Echocardiogram is pending.
Discussed with nursing.
Original Note:
Consultation
Consultation Request
Date/Time Consultation Performed: 03/28/25
Requesting Provider: Dr. Cameron
Performing Provider: Zaida Velazquez PA-C for Dr. Arce
Reason for Consultation: tachycardia
Medical History
-
Chief Complaint: tachycardia, hypotension, SOB
History of Present Illness:
Patient is a 74 yo M resident of [facility] with PMH of dementia, HTN, HLD, multiple myeloma with known osteolytic lesions who [facility] to [facility] due to tachycardia, hypotension, and SOB. He also reports several days of fever
and sore throat. On arrival, he tested positive for covid and CXR revealed evidence of PNA. Cardiology consulted as overnight noted to have persistent tachycardia with relative hypotension limiting treatment. He denies history of cardiac issues. He
is asymptomatic this morning of CP, SOB, palpitations. He is not on a blood thinner as OP.
PMH:
Multiple Myeloma with known osteolytic lesions
Dementia
HTN
HLD
Past Medical History
Past Medical History: Other (in HPI)
Social History
Tobacco: Non-Smoker
Alcohol: None
Personal:
Living: Intermediate
Family History
Family History: Unable to Obtain
Allergies / Home Medications
Allergy/AdvReac Type Severity Reaction Status Date / Time
No Known Allergies Allergy Unverified 03/26/25 14:06
�Medication �Instructions �Recorded �Confirmed �Type
acetaminophen 325 mg tablet 650 mg PO Q4HPRN PRN mild pain 03/26/25 03/26/25 History
(Tylenol)
acyclovir 400 mg tablet 400 mg PO DAILY Immunocompromised 03/26/25 03/26/25 History
PPX
baclofen 5 mg tablet 5 mg PO HS Neurological Condition 03/26/25 03/26/25 History
bisacodyl 10 mg rectal suppository 10 mg SD [id number] PRN if no bm aftr 03/26/25 03/26/25 History
(Dulcolax (bisacodyl)) mom
calcium 600 mg (as 1 tab PO DAILY Supplement 03/26/25 03/26/25 History
carbonate)-vitamin D3 10 mcg (400
unit) tablet (Calcium 600 + D(3))
cholecalciferol (vitamin D3) 50 50 mcg PO DAILY Supplement 03/26/25 03/26/25 History
mcg (2,000 unit) capsule (Vitamin
D3)
donepezil 10 mg tablet 10 mg PO HS Neurological Condition 03/26/25 03/26/25 History
magnesium hydroxide 400 mg/5 mL 2,400 mg PO HSPRN PRN constipation 03/26/25 03/26/25 History
oral suspension (Milk of Magnesia)
memantine 10 mg tablet 10 mg PO BID Neurological Condition 03/26/25 03/26/25 History
morphine 15 mg immediate release 15 mg PO Q4HPRN PRN severe pains 03/26/25 03/26/25 History
tablet
morphine 15 mg tablet,extended 15 mg PO Q12H Pain 03/26/25 03/26/25 History
release
polyethylene glycol 3350 17 gram 17 g PO DAILY Constipation 03/26/25 03/26/25 History
oral powder packet (Miralax)
rosuvastatin 5 mg tablet (Crestor) 5 mg PO QPM High Cholesterol 03/26/25 03/26/25 History
therapeutic multivitamin 1 tab PO DAILY Supplement 03/26/25 03/26/25 History
valsartan 80 mg tablet 80 mg PO DAILY Blood Pressure 03/26/25 03/26/25 History
vortioxetine 5 mg tablet 15 mg PO HS Mental Health/Anxiety 03/26/25 03/26/25 History
(Trintellix)
Review of Systems
-
History Source: Patient
All other systems: Negative unless noted
Physical Exam
Vital Signs
Temp Pulse Resp BP Pulse Ox
98 F 145 21 107/82 96
03/28/25 07:03 03/28/25 06:00 03/28/25 06:00 03/28/25 06:00 03/28/25 04:00
Lab Results
03/28/25 06:00
03/28/25 06:00
Troponin I 0.060 ng/ml H* 03/28/25 01:58
Physical Exam
General: No Apparent Distress and Comfortable
HEENT: Normocephalic, Anicteric and Moist Mucous Membranes
Respiratory: Other (no audible wheezes)
Cardiac: Regular Rhythm (tachycardic)
Musculoskeletal: No Clubbing, No Cyanosis and Edema (trace of B/L LE)
Skin: Warm and Dry
Neuro: Awake, Alert and Oriented (to self)
Impression / Plan
-
Primary Sound Assistant: none prior to admission
Assessment:
Presentation with hypotension, tachycardia
Sepsis
Covid PNA
Atrial tachycardia vs atypical atrial flutter with RVR, new diagnosis
Elevated troponin
LBBB
Multiple Myeloma with known osteolytic lesions
Dementia
HTN
HLD
DNR code status
ECHO 03/28/25: pending
Plan:
- Patient presented with fever, sore throat, hypotension, [facility] and tested COVID-positive and with evidence of pneumonia by CXR and sepsis.
- Cardiology consulted as noted to have atrial tachycardia versus atypical atrial flutter with RVR, which is new diagnosis for patient. He is asymptomatic at this time.
- Heart rates presently remain poorly controlled in the 140 range on review of telemetry at present. Beta-erick/calcium channel erick not able to be utilized due to hypotension requiring midodrine 10 mg 3 times daily. Was given one dose of
p.o. digoxin 250mcg overnight without improvement. Would consider for digoxin loading with several doses of IV versus addition of amiodarone. of note, also had 2 brief pauses overnight, also asymptomatic.
- [id number] score of 3 for age, HTN. as lives at facility would consider for OAC. will discuss with family
- check echo
- trops mildly elevated, but relatively flat in 0.05-0.07 range. no CP. suspected nonischemic myocardial injury. will manage conservatively at this time. has LBBB by EKGs, no prior to compare
- presently on 1:1
- continue treatment of covid PNA with remdesivir, steroids, and abx
- chest CT without evidence of PE.
Data Reviewed
-
EKG: Tracing Personally Visualized and interpreted
Radiology: Report Reviewed by me
CT Scan: Report Reviewed by me
Labs: Labs Reviewed by me
Old Records: Reviewed
--- NOTE | 2025-03-28 08:35 | PTCARENOTE ---
Pt with rapid wide complex tachycardia on tele monitor. Rates in the 150's. Pt asymptomatic. Dr De La Rosa and Zaida Velazquez notified via TT. Awaiting further orders.
[2025-03-28] MEDS: MUCINEX PO ×2 (08:40→19:48)
[2025-03-28] MEDS: LANOXIN 250 MCG IV (09:18)
[2025-03-28] MEDS: NAMENDA 10 MG PO ×2 (09:31→19:46)
[2025-03-28] MEDS: DECADRON 6 MG IV (09:31)
[2025-03-28] MEDS: VIBRAMYCIN 100 MG PO ×2 (09:31→19:46)
[2025-03-28] MEDS: ZOVIRAX 400 MG PO (09:31)
--- NOTE | 2025-03-28 10:00 | PTCARENOTE ---
Pt's HR remains elevated. aware.
[2025-03-28] MEDS: VEKLURY 250 MG IV (13:04)
[2025-03-28] MEDS: PACERONE 400 MG PO ×3 (13:04→22:08)
--- NOTE | 2025-03-28 13:21 | W.PN.HOSP.TC ---
Today's Communication/Plan
-
started on Amiodarone/Digoxin.
Assessment / Plan
Assessment / Plan
Impression:
74 y/o M hx of dementia, multiple myeloma with osteolytic lesions, HLD presents to ER from [facility] with back pain, tachycardia and hypotension. Patient also noted to have fever for a few days and sore throat, feeling cold/tired. He is more
confused than baseline and was briefly agitated. Given patients dementia - history was limited at present but grossly denies any other complaints. In ER, testing revealed COVID with possible LLL PNA. Patient admitted for hydration and treatment.
Patient remains tachycardiac, cardiology consulted.
1/2 blood culture positive, ID consulted.
Assessment/plan:
Severe sepsis with acute organ dysfunction POA (tachycardia, hypotension)
Source of infection acute COVID-19 infection
Acute LL PNA with wheezing
- check CT-PE study given prolonged hypotension, tachycardia and COVID+ status
- start Remdesivir, steroids, CAP treatment
- monitor O2 - currently on none
- IS/Acapella/Mucolytics as able (hx of dementia with confusion)
- Acute organ dysfunction in form of acute metabolic encephalopathy, elevated troponin.
Persistent hypotension/sinus tachycardia
IV fluid.
seen by vardiology
started on digoxin.
Hold Diovan
Acute metabolic encephalopathy in setting of COVID/PNA
Underlying history of dementia
- continue dementia meds
Nonischemic myocardial injury
- trop trends to peak
Hx of multiple myeloma with osteolytic lesions
- hold Morphine
- continue Baclofen HS
- on Acyclovir daily prophylaxis
Essential HTN -
Hold Diovan
HLD
continue statin
CODE STATUS: Full code
DVT prophylaxis: Lovenox
Diet: cardiac diet- soft diet.
Disposition: started on Amiodarone/Digoxin.
Total time spent on today's encounter was 65 minutes which included time spent in counseling the patient/family regarding diagnosis and treatment plan as listed above, goals of care, and symptom management. Case was discussed with nursing staff,
specialists, and care coordinators/case management. All labs and imaging personally reviewed by me. Remainder the time spent in detailed review of previous records, lab data, imaging, and other medical provider documentation.
Anticipated Discharge: > 48 hours
Subjective/Interval History
-
Date of Service: March 28, 2025
Patient remains tachycardic, cardiology consulted.
Denies chest pain or palpitation, no shortness of breath but still coughing.
Infectious disease consulted.
Objective Data
-
Labs:
Laboratory Results
03/28/25 03/28/25
01:32 01:58
WBC 8.2
Hgb 12.6 L
Hct 36.9 L
Plt Count 167 D
APTT 36.9 H
Sodium 141
Potassium 3.8
Chloride 114 H
Carbon Dioxide 21 L
BUN 16
Creatinine 0.6 L
Glucose 115 H
Calcium 8.2 L
Total Bilirubin 0.6
AST 18
ALT 26
Alkaline Phosphatase 50
Vital Signs:
Vital Signs
Temp Pulse Resp BP Pulse Ox
97.6 F 148 23 96/58 94
03/28/25 11:19 03/28/25 10:00 03/28/25 10:00 03/28/25 10:00 03/28/25 11:54
I&O
03/27/25 03/28/25 03/29/25
06:59 06:59 06:59
Intake Total 1450 / 1450 120 / 120
Output Total 450 / 450 150 / 150 125 / 125
Balance 1000 / 1000 -150 / -150 -5 / -5
Physical Exam
-
General: Well Developed, Well Nourished, No Apparent Distress and Comfortable
HEENT: Normocephalic, Atraumatic, Moist Mucous Membranes, No Ptosis, PERRLA and Nose Appears Normal
Respiratory: Wheezes, Rales, Rhonchi and Non Labored Respirations
Cardiac: Regular Rhythm, S1/S2 and Tachycardic
Breast: Deferred by me
GI: Soft, Nontender, Nondistended and Normal Bowel Sounds
Genito-urinary: No Costovertebral Tender
Musculoskeletal: No Clubbing, No Cyanosis and No Edema
Skin: Warm
Neuro: Awake
Psych: Calm and Confused
--- NOTE | 2025-03-28 13:38 | PTCARENOTE ---
Pt's assessment as documented. Aox1. Impulsive and difficult to redirect. ST with BBC on tele monitor. Medications administered as ordered, see MAR. Pt incontinent of multiple bowel movements. Complete hygiene care provided. 1:1 remains at bedside.
Safe environment maintained.
[2025-03-28] MEDS: CARDIZEM 125 IV (14:24)
--- NOTE | 2025-03-28 15:05 | PTCARENOTE ---
Cardizem gtt started and titrated per orders, see intervention.
--- NOTE | 2025-03-28 15:06 | W.PN.UPDATE ---
Addendum entered and electronically signed by Zaida Velazquez PA-C 03/28/25 16:31:
discussed with nursing. patient tolerating IV cardizem gtt, now up to 15. HRs presently in 70s with stable BP. will stop additional digoxin at present and continue po amiodarone. will continue to follow.
Original Note:
Update Note
Progress Note Update
Throughout day, patient's HRs have mostly remained consistently at ~140 bpm despite uptitration of rate and rhythm control thus far. presently receiving IV dig load, po amiodarone 400mg TID, and most recently IV cardizem added @5. if HRs remain
elevated, would stop dig and cardizem and place on IV amiodarone. BPs appear somewhat improved compared to this AM, will follow. Called patient's son Luis and updated. discussed atrial flutter which is new diagnosis for patient. He denies history
in patient of significant bleeding issues or falls and is agreeable to him starting eliquis. will start now. hgb 12.6. He states in the past he has been followed for his multiple myeloma by a Dr. Lao at [facility]. He most recently has been
receiving palliative chemo for pain from osteolytic lesions, however when patient became a long-term resident of [facility] approximately 2 months ago, chemotherapy needed to be stopped for his admission. There is no plan to resume chemo at
this time per son, although he feels this may benefit him.
[2025-03-28] MEDS: ELIQUIS 5 MG PO (16:29)
--- NOTE | 2025-03-28 18:15 | PTCARENOTE ---
Pt's HR maintaining rates in the 70-80's.
[2025-03-28] MEDS: ROCEPHIN 1000 MG IV (18:20)
[2025-03-28] MEDS: STERILE WATER FOR INJECTION 10 ML IV (18:20)
[2025-03-28] MEDS: CRESTOR 5 MG PO (18:21)
--- NOTE | 2025-03-28 19:31 | CON.ID ---
Consultation
-
Date/Time Consultation Requested: 03/28/25
Date/Time Consultation Performed: 03/28/25
Requesting Provider: Dr Harvey
Performing Provider: Dr Omer
Reason for Consultation: COVID positive
Chief Complaint / Past History
Chief Complaint
The patient was sent to the ED from his NH with symptoms of fatigue and hypotension
History of Present Illness
The patient was noted to be more confused than usual with a history of dementia and had fevers with some tachycardia . He presented to the ED where he was evaluated ad found to have possible left lower lobe pneumonia and was COVID positive. He was
hypotensive without fever or leukocytosis. CT chest was done and there was no PE,no lymphadenopathy, but atelectasis along with lytic bone lesions suggestive of his diagnosed multiple myeloma. He was sttarted on Remdesivir along with steroid and
Ceftriaxone for possible bacterial pneumonia.
Past History
Past Medical History: Cancer and Hypercholesterolemia
Additional Past Medical History:
dementia, multiple myeloma with bone lesions and discomfort
Past Surgical History: Cholecystectomy
Allergy History:
No Known Allergies Allergy (Unverified 03/26/25 14:06)
Medications Reviewed: Yes
Social History
Living: Custodial (unable to obtain social history due to dementia)
Employment: Retired
Family History
Family History: Not Pertinent
Review of Systems
Review of Systems
General: Other (fatigue , hypotension, altered mental status in setting of baseline dementia)
Respiratory: Cough (sneezing, runny nose)
Endocrine: Weakness and Fatigue
Musculoskeletal: Other (bone discomfort)
Neurological: Other (dementia)
All systems: All other systems were reviewed and were negative
Vital Signs
Temp Pulse Resp BP Pulse Ox
98.3 F 80 21 112/76 98
03/28/25 19:27 03/28/25 16:00 03/28/25 16:00 03/28/25 16:00 03/28/25 14:19
Physical Exam
Physical Exam
Constitutional: No Acute Distress, Well Developed, Comfortable, Chronically Ill and Non-toxic
Head: Normocephalic
Eyes: Pupils Equal, Pupils Round, No Conjunctival Hemorrhage and Sclera Anicteric
Pharynx: Benign
Oral: No Thrush and No Ulcers
Cardiovascular: Regular Rate
Pulmonary: Wheezes, Coarse and Non Labored
Gastrointestinal: Soft, Non Tender, Non Distended and Decreased Bowel Sounds
Extremities: Pulses (present and normal)
Skin: Warm and Dry
Wound: None
Neurological: Awake and Alert (gait not assessed, confused and unable to answer questions, has fire and safety helper to prevent falls )
Psychological: Calm and Confused
Lab / Diagnostic Study Results
03/28/25 06:00
03/28/25 06:00
Abs Immat Gran (auto) 0.0 10^3/uL (0-0.05) 03/28/25 01:32
Absolute Neuts (auto) 6.8 10^3/uL (1.4-6.5) H 03/28/25 01:32
Absolute Lymphs (auto) 0.4 10^3/uL (1.2-3.4) L 03/28/25 01:32
Absolute Monos (auto) 1.0 10^3/uL (0.1-0.6) H 03/28/25 01:32
Absolute Basos (auto) 0.0 10^3/uL (0-0.2) 03/28/25 01:32
Immature Gran % 0.5 % (0-0.5) 03/28/25 01:32
Neutrophils % 83.1 % (42.2-75.2) H 03/28/25 01:32
Lymphocytes % 4.3 % (20.5-51.1) L 03/28/25 01:32
Monocytes % 12.0 % (1.7-9.3) H 03/28/25 01:32
Eosinophils % 0.0 % (0-6) 03/28/25 01:32
Basophils % 0.1 % (0-2) 03/28/25 01:32
Lactic Acid Cancelled 03/26/25 18:15
Ur Squamous Epith Cells 3-5 /LPF (Few) 03/26/25 14:26
Microbiology Results
Micro:
03/26/25 14:07 Blood Culture - Preliminary
Blood/Venous No Growth in 48 hours- Final report to follow
03/26/25 14:07 Blood Culture - Preliminary
Blood/Venous Coagulase neg. staphylococcus
Additional testing on request
Gram Stain - Preliminary
03/26/25 18:24 MRSA Screen - Final
Nose No Methicillin Resistant Staphylococcus aureus isolated.
Assessment / Plan
1. COVID+ with underlying upper respiratory symptoms ,sneezing, runny nose ,minimal cough with placement on Remdesivir, steroid, infection control needs in place
2. CT Chest with no evidence of PE,no nodes, lytic bone lesions due to myeloma, atelectasis with possible left lower lobe infiltrate, without SOB, cough,with wheeze
3. Dementia with minimal speech or ability to answer questions or respond to directives with need for supervision and safety to prevent falls
4. multiple myeloma with lytic bone lesions with plan for pain contro if needed
Care Review
Plan reviewed with: Nurse (Critical care nurse conversation ) and Other Provider (fire and safety helper conversation for details on patient behavior ,symptoms)
Total Time Spent with Patient (in minutes): 55
[id number]
[2025-03-28] MEDS: ARICEPT 10 MG PO (22:08)
[2025-03-28] MEDS: LIORESAL 5 MG PO (22:08)
[2025-03-29] VITALS (18 sets, daily range): BP systolic 108–139; BP diastolic 53–112; PULSE 101; O2SAT 95
[2025-03-29] MEDS: NSS 1000 IV (02:50)
--- NOTE | 2025-03-29 05:32 | W.PN.UPDATE ---
Update Note
Progress Note Update
Around 2230, HR noted to be <40, rhythm strip in chart. Will hold off the Cardizem drip at present.
0510 HR 110-140 109/84 sinus tachy with pvc's .labs pending, will restart Cardizem drip.
[2025-03-29] MEDS: ELIQUIS 5 MG PO ×2 (05:41→20:00)
[2025-03-29 06:02] LABS: Hematocrit 33.4 % (39.0-52.0); Hemoglobin 11.9 g/dL (13.0-18.0); Mean Corp Hgb Conc. 35.6 g/dL (33.0-37.0); Mean Corpuscular Volume 95.4 fL (80.0-94.0); Platelet Count 158 10^3/uL (130-400); Red Cell Dist. Width 13.3 % (11.5-14.5)
--- NOTE | 2025-03-29 06:05 | PTCARENOTE ---
Around 2200 last night pt went bradycardic HR 20 with pause. ACADEMIC SUPPORT CENTER DIRECTOR aware. BP stable. Cardizem gtt put on hold. Pt stable throughout the night but HR went back up to 140's by the morning. rhythm was irregular, EKG done showing afib. Cardizem gtt
restarted at 5ml/hr per ACADEMIC SUPPORT CENTER DIRECTOR.
Pt continues to be confused. 1:1 in room. IVF running. Pills crushed in applesauce. Bed alarm on. NSR/ST/AFIB/BBB/PVC. OOB to bscx1. Will continue to monitor.
[2025-03-29 07:39] LABS: ALT (SGPT) 21 U/L (0-50); AST (SGOT) 21 U/L (17-59); Albumin 2.6 g/dl (3.5-5.0); Alkaline Phosphatase 46 U/L (38-126); Blood Urea Nitrogen 20 mg/dl (9-20); Calcium 8.2 mg/dl (8.4-10.2); Carbon Dioxide 15 mmol/L (22-30); Chloride 118 mmol/L (98-107); Estimated Creatinine Clearance 101 ml/min; Glucose 107 mg/dl (70-99); Potassium 3.6 mmol/L (3.5-5.1); Sodium 139 mmol/L (135-145); Total Protein 4.9 g/dl (6.3-8.2); eGFR > 60.00
[2025-03-29] MEDS: DECADRON 6 MG IV (09:04)
[2025-03-29] MEDS: VIBRAMYCIN 100 MG PO ×2 (09:06→20:01)
[2025-03-29] MEDS: NAMENDA 10 MG PO ×2 (09:06→20:01)
[2025-03-29] MEDS: ZOVIRAX 400 MG PO (09:07)
[2025-03-29] MEDS: PACERONE 400 MG PO ×2 (09:07→20:01)
[2025-03-29] MEDS: MUCINEX PO (09:08)
[2025-03-29] MEDS: CARDIZEM 125 IV (09:09)
--- NOTE | 2025-03-29 09:44 | W.PN.CARDCBS ---
Addendum entered and electronically signed by Thania Bee MD 03/29/25 12:13:
I saw and examined the patient.
The Liner Installer's note was reviewed and I agree with the note.
Comment:
Admitted with hypotension, tachycardia, sepsis and COVID-pneumonia. He is undergoing treatment.
From a cardiac point of view had atrial flutter now rate controlled. Now on oral anticoagulation after prior discussion with son. No active bleeding issues.
Switch IV amiodarone to oral amiodarone
Switch IV diltiazem to oral diltiazem
Monitor EKG and telemetry
Echocardiogram today
Continue treatment of COVID-pneumonia per primary service
Troponin likely non-ND troponin elevation
Left bundle branch block noted unclear duration
Conservative management otherwise given comorbidities including dementia
Original Note:
Today's Communication / Plan
-
continue IV cardizem, po amio
follow on tele given miranda/pauses in last 24 hours
continue eliquis
echo pending
follow volume status, suspect will need eventual diuresis
treatment of covid
Impression / Plan
-
Primary Die Try Out Worker Stamping: none prior to admission
Assessment:
Presentation with hypotension, tachycardia
Sepsis
Covid PNA
Typical atrial flutter with RVR, new diagnosis
Elevated troponin, suspected nonischemic myocardial injury
LBBB
Multiple Myeloma with known osteolytic lesions
Dementia
HTN
HLD
DNR code status
ECHO 03/28/25: pending
Plan:
- Patient presented with fever, sore throat, hypotension, tachycardia from half-way and tested COVID-positive and with evidence of pneumonia by CXR and sepsis.
- Cardiology consulted as noted to have typical atrial flutter with RVR, new diagnosis for patient. remains asymptomatic.
- HRs presently improved on IV cardizem @5 and po amiodarone 400mg TID, but remains in aflutter. also with several pauses, longest ~4.5 seconds, yesterday afternoon, will continue to follow on tele. had some miranda overnight and IV cardizem
temporarily stopped however resumed as HR increased back throughout night. no miranda at present. follow QTc
- hypotension limits rate control at present, BPs improved overnight. currently on midodrine 10mg TID
- after discussion with family 03/28, he was started on eliquis 5mg BID.
- echo pending
- trops mildly elevated, but relatively flat in 0.05-0.07 range. no CP. suspected nonischemic myocardial injury. will manage conservatively at this time. has LBBB by EKGs, no prior to compare
- continue treatment of covid PNA with remdesivir, steroids, and abx
- chest CT without evidence of PE.
- would follow volume status. suspect will need diuresis prior to DC.
- on 1:1
- d/w nursing via TT
Progress Note - Die Try Out Worker Stamping
Subjective
Date of Service: March 29, 2025
remains with cough
Objective
Labs:
03/29/25 05:40
03/29/25 05:40
Labs
Hgb 11.9 g/dL (13.0-18.0) L 03/29/25 05:40
Hct 33.4 % (39.0-52.0) L 03/29/25 05:40
Plt Count 158 10^3/uL (130-400) 03/29/25 05:40
APTT 36.9 Sec (23.4-35.0) H 03/28/25 01:58
Sodium 139 mmol/L (135-145) 03/29/25 05:40
Potassium 3.6 mmol/L (3.5-5.1) 03/29/25 05:40
BUN 20 mg/dl (9-20) 03/29/25 05:40
Creatinine 0.6 mg/dL (0.7-1.3) L 03/29/25 05:40
Glucose 107 mg/dl (70-99) H 03/29/25 05:40
Troponins
03/26/25 03/26/25 03/26/25
14:07 17:02 22:51
Troponin I 0.077 H* 0.071 H* 0.057 H*
03/27/25 03/28/25
02:00 01:58
Troponin I Cancelled 0.060 H*
Vital Signs and I&O:
Vital Signs
Temp Pulse Resp BP Pulse Ox
98.2 F 132 25 122/76 99
03/29/25 03:01 03/29/25 04:00 03/29/25 04:00 03/29/25 09:07 03/28/25 22:12
Vital Signs
Temp Pulse Resp BP Pulse Ox
98.2 F 132 25 122/76 99
03/29/25 03:01 03/29/25 04:00 03/29/25 04:00 03/29/25 09:07 03/28/25 22:12
Intake & Output
03/27/25 03/28/25 03/29/25 03/30/25
07:59 07:59 07:59 07:59
Intake Total 1450 / 1450 140 / 140
Output Total 450 / 450 150 / 150 375 / 375
Balance 1000 / 1000 -150 / -150 -235 / -235
[2025-03-29] MEDS: VEKLURY 250 MG IV (12:09)
--- NOTE | 2025-03-29 13:15 | W.PN.HOSP.TC ---
Addendum entered and electronically signed by Roselyn Cameron MD 03/29/25 14:47:
Viral Pneumonia -2/2, COVID
Original Note:
Today's Communication/Plan
-
Monitor heart rate.
PT/OT consult.
Assessment / Plan
Assessment / Plan
Impression:
74 y/o M hx of dementia, multiple myeloma with osteolytic lesions, HLD presents to ER from [facility] with back pain, tachycardia and hypotension. Patient also noted to have fever for a few days and sore throat, feeling cold/tired. He is more
confused than baseline and was briefly agitated. Given patients dementia - history was limited at present but grossly denies any other complaints. In ER, testing revealed COVID with possible LLL PNA. Patient admitted for hydration and treatment.
Patient remains tachycardiac, cardiology consulted.
1/2 blood culture positive, ID consulted.
Assessment/plan:
Severe sepsis with acute organ dysfunction POA (tachycardia, hypotension)
Source of infection acute COVID-19 infection
Acute LL PNA with wheezing
- check CT-PE study given prolonged hypotension, tachycardia and COVID+ status
- start Remdesivir, steroids, CAP treatment
- monitor O2 - currently on none
- IS/Acapella/Mucolytics as able (hx of dementia with confusion)
- Acute organ dysfunction in form of acute metabolic encephalopathy, elevated troponin.
Atrial flutter with RVR
IV fluid.
seen by cardiology
Was given Zaroxolyn with no
started amiodarone/diltiazem now on oral.
Hold Diovan
Acute metabolic encephalopathy in setting of COVID/PNA
Underlying history of dementia
- continue dementia meds
Nonischemic myocardial injury
- trop trends to peak
Hx of multiple myeloma with osteolytic lesions
- hold Morphine
- continue Baclofen HS
- on Acyclovir daily prophylaxis
Essential HTN -
Hold Diovan
HLD
continue statin
CODE STATUS: Full code
DVT prophylaxis: Lovenox
Diet: cardiac diet- soft diet.
Disposition: started on Amiodarone/diltiazem.
Family communication: Discussed with son at bedside.
Total time spent on today's encounter was 65 minutes which included time spent in counseling the patient/family regarding diagnosis and treatment plan as listed above, goals of care, and symptom management. Case was discussed with nursing staff,
specialists, and care coordinators/case management. All labs and imaging personally reviewed by me. Remainder the time spent in detailed review of previous records, lab data, imaging, and other medical provider documentation.
Anticipated Discharge: > 48 hours
Subjective/Interval History
-
Date of Service: March 29, 2025
Patient seen and examined at bedside, denies any chest pain or shortness of breath, no abdominal pain, no nausea, no vomiting, no diarrhea or constipation.
Heart rate and shortness of breath improved, discussed with son at bedside.
Objective Data
-
Labs:
Laboratory Results
03/29/25
05:40
WBC 7.5
Hgb 11.9 L
Hct 33.4 L
Plt Count 158
Sodium 139
Potassium 3.6
Chloride 118 H
Carbon Dioxide 15 L
BUN 20
Creatinine 0.6 L
Glucose 107 H
Calcium 8.2 L
Total Bilirubin 0.6
AST 21
ALT 21
Alkaline Phosphatase 46
Vital Signs:
Vital Signs
Temp Pulse Resp BP Pulse Ox
97.0 F 132 25 122/85 98
03/29/25 12:00 03/29/25 04:00 03/29/25 04:00 03/29/25 12:09 03/29/25 09:57
I&O
03/28/25 03/29/25 03/30/25
06:59 06:59 06:59
Intake Total 140 / 140
Output Total 150 / 150 375 / 375
Balance -150 / -150 -235 / -235
Physical Exam
-
General: Well Developed, Well Nourished, No Apparent Distress and Comfortable
HEENT: Normocephalic, Atraumatic, Moist Mucous Membranes, No Ptosis, PERRLA and Nose Appears Normal
Respiratory: Wheezes, Rales, Rhonchi and Non Labored Respirations
Cardiac: S1/S2 and Irregular Rhythm
Breast: Deferred by me
GI: Soft, Nontender, Nondistended and Normal Bowel Sounds
Genito-urinary: No Costovertebral Tender
Musculoskeletal: No Clubbing, No Cyanosis and No Edema
Skin: Warm
Neuro: Awake
Psych: Calm and Confused
Data Reviewed
-
Diagnostic Radiology: Image personally visualized and interpreted and Report Reviewed by me
CT Scan: Image personally visualized and interpreted and Report Reviewed by me
Ultrasound: Image personally visualized and interpreted and Report Reviewed by me
MRI: Image personally visualized and interpreted and Report Reviewed by me
Medical Tests (Nuc Med, Echo etc): Image personally visualized and interpreted and Report Reviewed by me
Labs: Labs Reviewed by me
Old Records: Reviewed
[2025-03-29] MEDS: CARDIZEM CD 120 MG PO (14:20)
--- NOTE | 2025-03-29 16:11 | CM ---
Discharge POC: Therapy recommendation for SNF. Patient is LTC at [facility]. Referral forwarded.
--- NOTE | 2025-03-29 16:17 | W.PN.UPDATE ---
Update Note
Progress Note Update
notified by nursing that patient converted to sinus miranda with HRs in 40-50s at 14:05. confirmed by EKG. with some brief runs of NSVT vs atach. will replete K and follow. given miranda, will reduce po amiodarone dose to 400mg BID and place hold
parameters on po cardizem.
[2025-03-29] MEDS: KLOR-CON 20 MEQ PO (17:26)
[2025-03-29] MEDS: CRESTOR 5 MG PO (17:27)
[2025-03-29] MEDS: ROCEPHIN 1000 MG IV (17:27)
[2025-03-29] MEDS: STERILE WATER FOR INJECTION 10 ML IV (17:28)
--- NOTE | 2025-03-29 18:35 | PTCARENOTE ---
Assisted Pt OOB to BSC with Pt incontinent of large loose BM; Cleaned up Pt and floor. Bed bath performed with wipes; Assisted back to bed.
[2025-03-29] MEDS: MUCINEX 600 MG PO (20:00)
--- NOTE | 2025-03-29 21:02 | W.PN.ID1 ---
Date of Service
Date of Service: March 29, 2025
Today's Communication
discussed bradycardia with critical care nurse
Assessment / Plan
1. COVID+ with underlying upper respiratory symptoms ,sneezing, runny nose ,minimal cough with placement on Remdesivir, steroid, infection control needs in place
2. CT Chest with no evidence of PE,no nodes, lytic bone lesions due to myeloma, atelectasis with possible left lower lobe infiltrate, without SOB, cough,with wheeze,continues on Ceftriaxone
3. Dementia with minimal speech or ability to answer questions or respond to directives with need for supervision and safety to prevent falls
4. Multiple myeloma with lytic bone lesions with plan for pain contro if needed
Chief Complaint
-: Other (COVID+)
Subjective / Review of Systems
Review of Systems: No Fever, No Chills, Headache, No Pharyngitis, No Stiff Neck, No Swollen Lymph Nodes, Cough, No Sputum Production, No Chest Pain, No Palpitations, No Abdominal Pain, No Nausea, No Vomiting, No Diarrhea, No Dysuria, No Joint Pain
and No Skin Rash
Vital Signs / Physical Exam
Vital Signs
Vital Signs
Temp Pulse Resp BP Pulse Ox
97.5 F 51 18 131/70 97
03/29/25 19:23 03/29/25 18:00 03/29/25 18:00 03/29/25 20:01 03/29/25 15:09
Physical Exam
Constitutional: No Acute Distress, Well Developed, Comfortable, Acutely Ill and Non-toxic
Head: Normocephalic
Eyes: Pupils Equal, Pupils Round, No Conjunctival Hemorrhage and Sclera Anicteric
Oropharyngeal: Benign
Cardiovascular: Regular Rate and Irregular Rate (bradycardia to 46 during my evaluation in ICU)
Pulmonary: Clear, Coarse and Non Labored
Gastrointestinal: Soft, Non Tender, Non Distended and Decreased Bowel Sounds
Extremities: Edema
Skin: Warm and Dry
Wound: None
Neurological: Awake and Alert (confused,gait not evaluated)
Psychological: Calm and Confused
Objective Data
Lab Data
Lab Results
03/29/25 05:40
03/29/25 05:40
APTT 36.9 Sec (23.4-35.0) H 03/28/25 01:58
Estimated Creat Clear 101 ml/min 03/29/25 05:40
Lactic Acid Cancelled 03/26/25 18:15
Total Bilirubin 0.6 mg/dl (0.2-1.3) 03/29/25 05:40
AST 21 U/L (17-59) 03/29/25 05:40
ALT 21 U/L (0-50) 03/29/25 05:40
Alkaline Phosphatase 46 U/L (38-126) 03/29/25 05:40
Most recent labs reviewed.
Microbiology: Report Reviewed
Micro Results:
03/26/25 14:07 Blood Culture - Preliminary
Blood/Venous No Growth in 72 hours- Final report to follow
03/26/25 14:07 Blood Culture - Preliminary
Blood/Venous Coagulase neg. staphylococcus
Additional testing on request
Gram Stain - Preliminary
03/26/25 18:24 MRSA Screen - Final
Nose No Methicillin Resistant Staphylococcus aureus isolated.
Chest X-Ray: Report Reviewed
Care Review
Plan reviewed with: Nurse
Total Time Spent with Patient (in minutes): 35
--- NOTE | 2025-03-29 21:40 | PTCARENOTE ---
Pt received from dayshift RN. Pt is forgetful, tearful, ans very anxious. not attempting to get out of bed, calling out for nurse frequently. calm tone of voice and reassuring statements used when communicating with Pt. covid precautions maintained.
pills admin crushed in applesauce. Pt using urinal to void. call light in reach. safe environment maintained.
[2025-03-29] MEDS: LIORESAL 5 MG PO (21:54)
[2025-03-29] MEDS: MELATONIN 5 MG PO (21:55)
[2025-03-29] MEDS: ARICEPT 10 MG PO (21:55)
[2025-03-29] MEDS: TORADOL 15 MG IV (21:55)
[2025-03-30] VITALS (12 sets, daily range): BP systolic 116–156; BP diastolic 58–75; BMI 28.8
[2025-03-30] MEDS: TYLENOL 650 MG PO ×2 (05:33→21:08)
[2025-03-30 05:57] LABS: Hematocrit 32.5 % (39.0-52.0); Hemoglobin 11.5 g/dL (13.0-18.0); Mean Corp Hgb Conc. 35.4 g/dL (33.0-37.0); Mean Corpuscular Volume 93.9 fL (80.0-94.0); Platelet Count 150 10^3/uL (130-400); Red Cell Dist. Width 13.2 % (11.5-14.5)
[2025-03-30 06:25] LABS: Blood Urea Nitrogen 24 mg/dl (9-20); Calcium 8.3 mg/dl (8.4-10.2); Carbon Dioxide 16 mmol/L (22-30); Chloride 115 mmol/L (98-107); Estimated Creatinine Clearance 87 ml/min; Glucose 112 mg/dl (70-99); Potassium 3.4 mmol/L (3.5-5.1); Sodium 139 mmol/L (135-145); eGFR > 60.00
[2025-03-30] MEDS: PACERONE PO (07:50)
--- NOTE | 2025-03-30 07:50 | W.PN.CARDCBS ---
Addendum entered and electronically signed by Thania Bee MD 03/30/25 11:40:
I saw and examined the patient.
The Cutter Down's note was reviewed and I agree with the note.
Comment: Exam without change. He does have underlying dementia. Trivial lower extremity edema. Heart on exam exam bradycardic but regular.
Mild cardiomyopathy noted. Previous a flutter with rapid ventricular response now sinus bradycardia heart rate in the 40s. Previously low blood pressures requiring midodrine now blood pressures stable.
Being treated/followed for COVID pneumonia/sepsis.
Plan at this time:
- Discontinue diltiazem
- Hold amiodarone and likely reassess at lower dose. Follow telemetry.
- EKG left bundle branch block and sinus bradycardia in the 40s reviewed by me. Appears that he has sick sinus syndrome. High risk for needing pacemaker in the future given tacky bradycardia.
- Mild cardiomyopathy noted. Conservative management.
- Mild troponin elevations noted. No chest pain.
- Volume status clinically fair but difficult to assess. Check proBNP in the morning
Original Note:
Today's Communication / Plan
-
hold AM amio and decrease dose to 200mg BID starting this evening
follow QTc
stop po cardizem
continue eliquis
wean midodrine as able
continue treatment of acute covid illness
Impression / Plan
-
Primary Welt Pocket Machine Operator: none prior to admission
Assessment:
Presentation with hypotension, tachycardia
Sepsis
Covid PNA
Typical atrial flutter with RVR, new diagnosis
Elevated troponin, suspected nonischemic myocardial injury
LBBB
Multiple Myeloma with known osteolytic lesions
Dementia
HTN
HLD
DNR code status
ECHO 03/28/25: EF 45 to 50%, trace AR, mild MR, mild TR
Plan:
- Patient presented with fever, sore throat, hypotension, tachycardia from [facility] and tested COVID-positive and with evidence of pneumonia by CXR and sepsis.
- Cardiology consulted as noted to have typical atrial flutter with RVR, new diagnosis for patient and asymptomatic
- he converted to SR/SB 03/29. remains miranda on review of tele overnight. no pauses
- will decrease amiodarone to 200mg BID starting this evening and stop po cardizem. repeat EKG in AM to reassess QTc
- after discussion with family 03/28, he was started on eliquis 5mg BID.
- remains on midodrine 10mg TID, wean as able
- echo with results as above, EF 45%
- trops mildly elevated, but relatively flat in 0.05-0.07 range. no CP. suspected nonischemic myocardial injury. will manage conservatively given current covid illness and comorbidities. has LBBB by EKGs, no prior to compare
- continue treatment of covid PNA with remdesivir, steroids, and abx
- would follow volume status. suspect will need diuresis prior to DC.
- d/w nursing. d/w hospitalist via TT
Progress Note - Welt Pocket Machine Operator
Subjective
Date of Service: March 30, 2025
with some confusion overnight
Objective
Labs:
03/30/25 05:40
03/30/25 05:40
Labs
Hgb 11.5 g/dL (13.0-18.0) L 03/30/25 05:40
Hct 32.5 % (39.0-52.0) L 03/30/25 05:40
Plt Count 150 10^3/uL (130-400) 03/30/25 05:40
APTT 36.9 Sec (23.4-35.0) H 03/28/25 01:58
Sodium 139 mmol/L (135-145) 03/30/25 05:40
Potassium 3.4 mmol/L (3.5-5.1) L 03/30/25 05:40
BUN 24 mg/dl (9-20) H 03/30/25 05:40
Creatinine 0.7 mg/dL (0.7-1.3) 03/30/25 05:40
Glucose 112 mg/dl (70-99) H 03/30/25 05:40
Troponins
03/28/25
01:58
Troponin I 0.060 H*
Vital Signs and I&O:
Vital Signs
Temp Pulse Resp BP Pulse Ox
98.0 F 45 15 131/69 96
03/30/25 03:30 03/30/25 06:00 03/30/25 06:00 03/30/25 06:00 03/30/25 02:00
Vital Signs
Temp Pulse Resp BP Pulse Ox
98.0 F 45 15 131/69 96
03/30/25 03:30 03/30/25 06:00 03/30/25 06:00 03/30/25 06:00 03/30/25 02:00
Intake & Output
03/27/25 03/28/25 03/29/25 03/30/25
07:59 07:59 07:59 07:59
Intake Total 1450 / 1450 140 / 140
Output Total 450 / 450 150 / 150 375 / 375
Balance 1000 / 1000 -150 / -150 -235 / -235 -10 / -10
[2025-03-30] MEDS: CARDIZEM CD PO (07:51)
[2025-03-30] MEDS: VIBRAMYCIN 100 MG PO ×2 (09:08→20:30)
[2025-03-30] MEDS: MUCINEX PO ×3 (09:08→20:31)
[2025-03-30] MEDS: DECADRON 6 MG IV (09:09)
[2025-03-30] MEDS: ZOVIRAX 400 MG PO (09:09)
[2025-03-30] MEDS: ELIQUIS 5 MG PO ×2 (09:09→20:30)
[2025-03-30] MEDS: NAMENDA 10 MG PO ×2 (09:09→21:09)
--- NOTE | 2025-03-30 10:00 | PTCARENOTE ---
Assumed care of patient at 0645. Assessment completed and documented in shift assessment.
Patient is AAOxself, pleasantly confused. Bed Alarm active for safety. Sinus Nabil with LBBB, no edema + pulses. BP stable. RA, lungs diminished throughout. Moist non-productive cough. Round abdomen, no BM today however had loose BM's yesterday.
IDDS-6 Soft-Bite Sized diet, poor appetite. Aspiration precautions maintained. Needs assistance to eat. Incontinent of urine at times. Urinal at bedside. Awaiting PT - evaluation. Remains on Novel Respiratory Precautions for COVID +.
--- NOTE | 2025-03-30 11:45 | CM ---
Patient seen at bedside in IMU. Patient referral to SNF at [facility] sent yesterday and patient has been in the memory care unit prior to COVID. Liaison is checking to see if patient would need to be quarantined at the facility when he returns. IF not
please call report to [phone]/fax [phone] for memory care unit. Patient is LTC at the facility. CM will continue to follow for discharge planning needs.
Plan; SNF; [facility] when medically appropriate; watch for possible need to change room for quarantine. call facility at [phone] if for discharge over weekend to confirm room.
[2025-03-30] MEDS: VEKLURY 250 MG IV (12:54)
[2025-03-30] MEDS: KLOR-CON 20 MEQ PO (12:54)
--- NOTE | 2025-03-30 13:08 | W.PN.HOSP.TC ---
Today's Communication/Plan
-
Monitor heart rate.
PT/OT consult.
Assessment / Plan
Assessment / Plan
Impression:
74 y/o M hx of dementia, multiple myeloma with osteolytic lesions, HLD presents to ER from [facility] with back pain, tachycardia and hypotension. Patient also noted to have fever for a few days and sore throat, feeling cold/tired. He is more
confused than baseline and was briefly agitated. Given patients dementia - history was limited at present but grossly denies any other complaints. In ER, testing revealed COVID with possible LLL PNA. Patient admitted for hydration and treatment.
Patient remains tachycardiac, cardiology consulted.
1/2 blood culture positive, ID consulted.
Patient noted to have atrial flutter with RVR.
Started on Cardizem and amiodarone drips.
Converted to sinus rhythm and currently bradycardia.
Cardizem and amiodarone switched to oral but now on hold.
Patient also started on Eliquis.
Assessment/plan:
Severe sepsis with acute organ dysfunction POA (tachycardia, hypotension)
Source of infection acute COVID-19 infection
Acute LL PNA with wheezing
- check CT-PE study given prolonged hypotension, tachycardia and COVID+ status
- start Remdesivir, steroids, CAP treatment
- monitor O2 - currently on none
- IS/Acapella/Mucolytics as able (hx of dementia with confusion)
- Acute organ dysfunction in form of acute metabolic encephalopathy, elevated troponin.
Atrial flutter with RVR
IV fluid.
seen by cardiology
Was given Zaroxolyn with no
started amiodarone/diltiazem now on oral.
Hold Diovan
03/30
Converted to sinus rhythm and currently bradycardia.
Morning Cardizem and amiodarone held
Acute metabolic encephalopathy in setting of COVID/PNA
Underlying history of dementia
- continue dementia meds
Nonischemic myocardial injury
- trop trends to peak
Hx of multiple myeloma with osteolytic lesions
- hold Morphine
- continue Baclofen HS
- on Acyclovir daily prophylaxis
Essential HTN -
Hold Diovan
HLD
continue statin
CODE STATUS: Full code
DVT prophylaxis: Lovenox
Diet: cardiac diet- soft diet.
Disposition: adjusted amiodarone dose.
Family communication: Discussed with son at bedside.
Total time spent on today's encounter was 65 minutes which included time spent in counseling the patient/family regarding diagnosis and treatment plan as listed above, goals of care, and symptom management. Case was discussed with nursing staff,
specialists, and care coordinators/case management. All labs and imaging personally reviewed by me. Remainder the time spent in detailed review of previous records, lab data, imaging, and other medical provider documentation.
Anticipated Discharge: > 48 hours
Subjective/Interval History
-
Date of Service: March 30, 2025
Patient is confused but otherwise overall improving.
Heart rate currently bradycardia, morning amiodarone and Cardizem held.
Objective Data
-
Labs:
Laboratory Results
03/30/25
05:40
WBC 6.5
Hgb 11.5 L
Hct 32.5 L
Plt Count 150
Sodium 139
Potassium 3.4 L
Chloride 115 H
Carbon Dioxide 16 L
BUN 24 H
Creatinine 0.7
Glucose 112 H
Calcium 8.3 L
Vital Signs:
Vital Signs
Temp Pulse Resp BP Pulse Ox
97.4 F 45 18 135/75 97
03/30/25 11:00 03/30/25 12:54 03/30/25 10:00 03/30/25 12:54 03/30/25 10:00
I&O
03/29/25 03/30/25 03/31/25
06:59 06:59 06:59
Intake Total 140 / 140
Output Total 375 / 375 175 / 175
Balance -235 / -235 -10 -175 / 175
Physical Exam
-
General: Well Developed, Well Nourished, No Apparent Distress and Comfortable
HEENT: Normocephalic, Atraumatic, Moist Mucous Membranes, No Ptosis, PERRLA and Nose Appears Normal
Respiratory: Wheezes, Rales, Rhonchi and Non Labored Respirations
Cardiac: Regular Rhythm, S1/S2 and Bradycardic
Breast: Deferred by me
GI: Soft, Nontender, Nondistended and Normal Bowel Sounds
Genito-urinary: No Costovertebral Tender
Musculoskeletal: No Clubbing, No Cyanosis and No Edema
Skin: Warm
Neuro: Awake
Psych: Calm and Confused
Data Reviewed
-
Diagnostic Radiology: Image personally visualized and interpreted and Report Reviewed by me
CT Scan: Image personally visualized and interpreted and Report Reviewed by me
Ultrasound: Image personally visualized and interpreted and Report Reviewed by me
MRI: Image personally visualized and interpreted and Report Reviewed by me
Medical Tests (Nuc Med, Echo etc): Image personally visualized and interpreted and Report Reviewed by me
Labs: Labs Reviewed by me
Old Records: Reviewed
[2025-03-30] MEDS: TORADOL 15 MG IV (14:02)
--- NOTE | 2025-03-30 15:00 | PTCARENOTE ---
Post endoscopy patient had large melena stool. Vitals stable. Had just drawn repeat H&H which came back 8.8. Notified attending provider Dr. Cho.
Patient also has not had any urinary output this shift. Bladder Scan for > 471mL. Straight Cath x 1 for 300mL (patient could have slightly voided when having BM).
--- NOTE | 2025-03-30 17:51 | W.PN.ID1 ---
Date of Service
Date of Service: March 30, 2025
Today's Communication
patient discussed with nurse and repeat blood culture to be drawn at family request
Assessment / Plan
1. COVID+ with underlying upper respiratory symptoms ,sneezing, runny nose ,minimal cough with placement on Remdesivir, steroid, infection control needs in place with resolution of symptoms/patient comfortable
2. CT Chest with no evidence of PE,no nodes, lytic bone lesions due to myeloma, atelectasis with possible left lower lobe infiltrate described on plain CXR, no SOB, cough,with wheeze,complete 5 days Ceftriaxone
3. Dementia with minimal speech or ability to answer questions or respond to directives with need for supervision and safety to prevent falls
4. Multiple myeloma with lytic bone lesions with plan for pain control if needed
Chief Complaint
-: Other (COVID+)
Subjective / Review of Systems
Patient admitted and found to be COVID +. there has been no respiratory distress or oxygen desaturation
Review of Systems: No Fever, No Chills, No Headache, No Pharyngitis, No Stiff Neck, No Swollen Lymph Nodes, Cough, No Sputum Production, No Chest Pain, No Palpitations, No Abdominal Pain, No Nausea, No Vomiting, No Diarrhea, No Dysuria, No Joint
Pain and No Skin Rash
Vital Signs / Physical Exam
Vital Signs
Vital Signs
Temp Pulse Resp BP Pulse Ox
97.5 F 47 26 121/58 96
03/30/25 15:00 03/30/25 16:00 03/30/25 16:00 03/30/25 16:00 03/30/25 14:00
Physical Exam
Constitutional: No Acute Distress, Well Developed, Comfortable, Chronically Ill and Non-toxic
Head: Normocephalic
Eyes: Pupils Equal, Pupils Round, No Conjunctival Hemorrhage and Sclera Anicteric
Oropharyngeal: Benign
Cardiovascular: Other (asymptomatic bradycardia)
Pulmonary: Clear and Non Labored
Gastrointestinal: Soft, Non Tender, Non Distended and Decreased Bowel Sounds
Genito-Urinary: Clear Urine
Extremities: Other (no edema with limited ROM)
Skin: Warm and Dry
Wound: None
Neurological: Awake (but often quite drowsy but not sure of his baseline)
Psychological: Calm (cooperates,not conversant)
Objective Data
Lab Data
Lab Results
03/30/25 05:40
03/30/25 05:40
APTT 36.9 Sec (23.4-35.0) H 03/28/25 01:58
Estimated Creat Clear 87 ml/min 03/30/25 05:40
Lactic Acid Cancelled 03/26/25 18:15
Total Bilirubin 0.6 mg/dl (0.2-1.3) 03/29/25 05:40
AST 21 U/L (17-59) 03/29/25 05:40
ALT 21 U/L (0-50) 03/29/25 05:40
Alkaline Phosphatase 46 U/L (38-126) 03/29/25 05:40
Most recent labs reviewed.
Microbiology: Report Reviewed (repeat blood culture drawn and pending)
Micro Results:
03/30/25 16:08 Blood Culture - Pending
Blood/Venous
03/26/25 14:07 Blood Culture - Preliminary
Blood/Venous No Growth in 4 days- Final report to follow
03/26/25 14:07 Blood Culture - Preliminary
Blood/Venous Coagulase neg. staphylococcus
Additional testing on request
Gram Stain - Preliminary
03/26/25 18:24 MRSA Screen - Final
Nose No Methicillin Resistant Staphylococcus aureus isolated.
Chest X-Ray: Report Reviewed
CT Scan: Report Reviewed
Care Review
Plan reviewed with: Nurse
Total Time Spent with Patient (in minutes): 35
[2025-03-30] MEDS: STERILE WATER FOR INJECTION 10 ML IV (18:08)
[2025-03-30] MEDS: CRESTOR 5 MG PO (18:08)
[2025-03-30] MEDS: ROCEPHIN 1000 MG IV (18:09)
[2025-03-30] MEDS: ARICEPT 10 MG PO (21:09)
[2025-03-30] MEDS: LIORESAL 5 MG PO (21:09)
[2025-03-30] MEDS: MELATONIN 5 MG PO (21:09)
[2025-03-31] VITALS (12 sets, daily range): BP systolic 98–145; BP diastolic 60–92; BMI 30.1
--- NOTE | 2025-03-31 00:29 | PTCARENOTE ---
assumed care of pt from dayshift RN. Pt is confused and very forgetful, needs frequent redirecting. tearful and anxious. bed alarm in us for patient safety. pt calling out for staff, attempting to exit bed. this RN sitting outside Pts door for pt
safety, redirecting pt and encouraging not to ambulate independently. Pt bathed, warm blankets provided, calming music playing. bradycardic on monitor, HR 40-50 bpm. Bp stable. urinating frequently. assessment as documented. safe environment
maintained.
[2025-03-31 04:37] LABS: Hematocrit 32.5 % (39.0-52.0); Hemoglobin 11.6 g/dL (13.0-18.0); Mean Corp Hgb Conc. 35.7 g/dL (33.0-37.0); Mean Corpuscular Volume 92.9 fL (80.0-94.0); Platelet Count 152 10^3/uL (130-400); Red Cell Dist. Width 12.9 % (11.5-14.5)
[2025-03-31 04:56] LABS: Blood Urea Nitrogen 25 mg/dl (9-20); Calcium 8.4 mg/dl (8.4-10.2); Carbon Dioxide 20 mmol/L (22-30); Chloride 116 mmol/L (98-107); Estimated Creatinine Clearance 114 ml/min; Glucose 135 mg/dl (70-99); Potassium 4.2 mmol/L (3.5-5.1); Sodium 139 mmol/L (135-145); eGFR > 60.00
[2025-03-31] MEDS: DECADRON 6 MG IV (08:41)
[2025-03-31] MEDS: ZOVIRAX 400 MG PO (08:44)
[2025-03-31] MEDS: TORADOL 15 MG IV ×2 (08:44→20:17)
[2025-03-31] MEDS: ELIQUIS 5 MG PO ×2 (08:44→20:16)
[2025-03-31] MEDS: NAMENDA 10 MG PO ×2 (08:45→20:16)
[2025-03-31] MEDS: VIBRAMYCIN 100 MG PO ×2 (08:45→20:16)
[2025-03-31] MEDS: MUCINEX 600 MG PO ×2 (08:45→20:16)
--- NOTE | 2025-03-31 12:41 | W.PN.CARDCBS ---
Today's Communication / Plan
-
Will give 1 dose of IV Lasix 20 mg
Follow volume status
Continue anticoagulation
Follow-up bradycardia
No further atrial arrhythmias resume amiodarone at low-dose 200 mg daily for suppression
Impression / Plan
-
Primary Accounts Receivable Processor: none prior to admission
Assessment:
Presentation with hypotension, tachycardia
Typical atrial flutter with RVR, new diagnosis
Tachy bradycardia/sick sinus syndrome
Sepsis
Covid PNA
Elevated troponin, suspected nonischemic myocardial injury
LBBB
Multiple Myeloma with known osteolytic lesions
Dementia
HTN
HLD
DNR code status
ECHO 03/28/25: EF 45 to 50%, trace AR, mild MR, mild TR
Plan:
Patient presented with fever, sore throat, hypotension, tachycardia from [facility] and tested COVID-positive and with evidence of pneumonia by CXR and sepsis.
- Cardiology consulted as noted to have typical atrial flutter with RVR, new diagnosis for patient and asymptomatic
He converted to SR/SB 03/29. He remains miranda on review of tele overnight which was independently reviewed by me. No pauses.
Given bradycardia diltiazem discontinued
Amiodarone transiently held and now decreased to 200 mg daily.
Continue to follow but high risk of need for future pacemaker.
Most recent EKG reviewed QTc stable.
After discussion with family 03/28, he was started on eliquis 5mg BID.
- History of orthostatic hypotension
Blood pressure remains normal/elevated and midodrine was decreased to 5 mg 3 times daily. Hold parameters in place. Patient has not needed medication.
-Cardiomyopathy echo with results as above, EF 45%
In the setting of COVID-pneumonia and sepsis. Continue to follow.
Continue conservative treatment.
proBNP ordered given exam is difficult. proBNP 03/31/2025 was 5140. 1 dose 20 mg IV Lasix given. Follow.
-Suspected non-ischemic troponin elevation
On admission trops mildly elevated, but relatively flat in 0.05-0.07 range. Asymptomatic.
Continue conservative management.
He has LBBB by EKGs, no prior to compare
-Sepsis/COVID-pneumonia
Continue treatment of covid PNA with remdesivir, steroids, and abx
-Dementia currently on one-to-one.
- d/w nursing. I have independently reviewed telemetry, prior EKGs, lab work.
Progress Note - Accounts Receivable Processor
Subjective
Date of Service: March 31, 2025
He has dementia. He tells me he is tired. No chest pain or palpitations noted.
Objective
Labs:
03/31/25 04:12
03/31/25 04:12
Labs
Hgb 11.6 g/dL (13.0-18.0) L 03/31/25 04:12
Hct 32.5 % (39.0-52.0) L 03/31/25 04:12
Plt Count 152 10^3/uL (130-400) 03/31/25 04:12
APTT 36.9 Sec (23.4-35.0) H 03/28/25 01:58
Sodium 139 mmol/L (135-145) 03/31/25 04:12
Potassium 4.2 mmol/L (3.5-5.1) 03/31/25 04:12
BUN 25 mg/dl (9-20) H 03/31/25 04:12
Creatinine 0.6 mg/dL (0.7-1.3) L 03/31/25 04:12
Glucose 135 mg/dl (70-99) H 03/31/25 04:12
Vital Signs and I&O:
Vital Signs
Temp Pulse Resp BP Pulse Ox
98.0 F 60 16 126/71 95
03/31/25 07:32 03/31/25 12:00 03/31/25 11:38 03/31/25 12:00 03/31/25 11:38
Vital Signs
Temp Pulse Resp BP Pulse Ox
98.0 F 60 16 126/71 95
03/31/25 07:32 03/31/25 12:00 03/31/25 11:38 03/31/25 12:00 03/31/25 11:38
Intake & Output
03/29/25 03/30/25 03/31/25 04/01/25
06:59 06:59 06:59 06:59
Intake Total 140 / 140
Output Total 375 / 375 10 975 / 975
Balance -235 / -235 -10 / -10 -975 / -975
Physical Exam
Physical Exam
General: Well developed, well nourished in NAD.
Heart: Irregularly irregular
Lungs: Coarse breath sounds
Extremities: No clubbing, cyanosis and trace to +1 edema bilaterally.
Neuro: Awake
--- NOTE | 2025-03-31 13:51 | W.PN.HOSP.TC ---
Today's Communication/Plan
-
Status post Lasix.
Continue Eliquis.
monitor technician
Assessment / Plan
Assessment / Plan
Impression:
74 y/o M hx of dementia, multiple myeloma with osteolytic lesions, HLD presents to ER from [facility] with back pain, tachycardia and hypotension. Patient also noted to have fever for a few days and sore throat, feeling cold/tired. He is more
confused than baseline and was briefly agitated. Given patients dementia - history was limited at present but grossly denies any other complaints. In ER, testing revealed COVID with possible LLL PNA. Patient admitted for hydration and treatment.
Patient remains tachycardiac, cardiology consulted.
1/2 blood culture positive, ID consulted.
Patient noted to have atrial flutter with RVR.
Started on Cardizem and amiodarone drips.
Converted to sinus rhythm and currently bradycardia.
Cardizem and amiodarone switched to oral but now on hold.
Patient also started on Eliquis.
Assessment/plan:
Severe sepsis with acute organ dysfunction POA (tachycardia, hypotension)
Source of infection acute COVID-19 infection
Acute LL PNA with wheezing
- check CT-PE study given prolonged hypotension, tachycardia and COVID+ status
- start Remdesivir, steroids, CAP treatment
- monitor O2 - currently on none
- IS/Acapella/Mucolytics as able (hx of dementia with confusion)
- Acute organ dysfunction in form of acute metabolic encephalopathy, elevated troponin.
Atrial flutter with RVR
IV fluid.
seen by cardiology
Was given Zaroxolyn with no
started amiodarone/diltiazem now on oral.
Hold Diovan
03/30
Converted to sinus rhythm and currently bradycardia.
Morning Cardizem and amiodarone held
03/31
Still bradycardic
Acute metabolic encephalopathy in setting of COVID/PNA
Underlying history of dementia
- continue dementia meds
Nonischemic myocardial injury
- trop trends to peak
Hx of multiple myeloma with osteolytic lesions
- hold Morphine
- continue Baclofen HS
- on Acyclovir daily prophylaxis
Essential HTN -
Hold Diovan
HLD
continue statin
CODE STATUS: Full code
DVT prophylaxis: Lovenox
Diet: cardiac diet- soft diet.
Disposition: Given Lasix
Family communication: Discussed with son at bedside.
Total time spent on today's encounter was 65 minutes which included time spent in counseling the patient/family regarding diagnosis and treatment plan as listed above, goals of care, and symptom management. Case was discussed with nursing staff,
specialists, and care coordinators/case management. All labs and imaging personally reviewed by me. Remainder the time spent in detailed review of previous records, lab data, imaging, and other medical provider documentation.
Anticipated Discharge: 24 - 48 hours
Subjective/Interval History
-
Date of Service: March 31, 2025
Patient seen and examined at bedside, was agitated overnight and try to get out of bed, currently one-to-one.
Objective Data
-
Labs:
Laboratory Results
03/31/25
04:12
WBC 5.8
Hgb 11.6 L
Hct 32.5 L
Plt Count 152
Sodium 139
Potassium 4.2
Chloride 116 H
Carbon Dioxide 20 L
BUN 25 H
Creatinine 0.6 L
Glucose 135 H
Calcium 8.4
Vital Signs:
Vital Signs
Temp Pulse Resp BP Pulse Ox
98.1 F 60 16 126/71 95
03/31/25 11:24 03/31/25 12:00 03/31/25 11:38 03/31/25 12:00 03/31/25 11:38
I&O
03/30/25 03/31/25 04/01/25
06:59 06:59 06:59
Output Total
Balance -
Physical Exam
-
General: Well Developed, Well Nourished, No Apparent Distress and Comfortable
HEENT: Normocephalic, Atraumatic, Moist Mucous Membranes, No Ptosis, PERRLA and Nose Appears Normal
Respiratory: Wheezes, Rales, Rhonchi and Non Labored Respirations
Cardiac: Regular Rhythm, S1/S2 and Bradycardic
Breast: Deferred by me
GI: Soft, Nontender, Nondistended and Normal Bowel Sounds
Genito-urinary: No Costovertebral Tender
Musculoskeletal: No Clubbing, No Cyanosis and No Edema
Skin: Warm
Neuro: Awake
Psych: Calm and Confused
Data Reviewed
-
Diagnostic Radiology: Image personally visualized and interpreted and Report Reviewed by me
CT Scan: Image personally visualized and interpreted and Report Reviewed by me
Ultrasound: Image personally visualized and interpreted and Report Reviewed by me
MRI: Image personally visualized and interpreted and Report Reviewed by me
Medical Tests (Nuc Med, Echo etc): Image personally visualized and interpreted and Report Reviewed by me
Labs: Labs Reviewed by me
Old Records: Reviewed
[2025-03-31] MEDS: LASIX 20 MG IV (13:57)
[2025-03-31] MEDS: PACERONE 200 MG PO (13:58)
--- NOTE | 2025-03-31 15:05 | PTCARENOTE ---
Patient oriented to self. Reports very tired. Very confused, pleasant, frequent education and redirection provided. 1:1 for pulling at lines/wires and constantly trying to get out of bed. NSB. BPs stable. Urinary frequency, loose BMs. Bed alarm on,
continuing to closely monitor.
[2025-03-31] MEDS: STERILE WATER FOR INJECTION 10 ML IV (17:09)
[2025-03-31] MEDS: ROCEPHIN 1000 MG IV (17:09)
[2025-03-31] MEDS: CRESTOR 5 MG PO (17:10)
[2025-03-31] MEDS: MELATONIN 5 MG PO (20:16)
[2025-03-31] MEDS: TESSALON PERLES 200 MG PO (20:16)
[2025-03-31] MEDS: LIORESAL 5 MG PO (23:05)
[2025-03-31] MEDS: ARICEPT 10 MG PO (23:05)
[2025-03-31] MEDS: LIDOCAINE 4% PATCH 1 PATCH TOPICAL (23:27)
[2025-03-31] MEDS: TYLENOL 650 MG PO (23:28)
--- NOTE | 2025-03-31 23:37 | PTCARENOTE ---
Pt having complainants of back pain ordered medications given with out relief. Night TEST DEVELOPMENT ENGINEER made aware , lidocaine patched order and placed on back where Pt showed he had pain. Pt remains confused and upset about knowing he is confused and 'mixed up'.
Emotional support given. Spo2 95% RA. bed alarm on, bed in lowest position. Assessment care and vitals as charted.
[2025-04-01] VITALS (12 sets, daily range): BP systolic 112–143; BP diastolic 67–101; BMI 29.2
[2025-04-01 06:37] LABS: Hematocrit 35.1 % (39.0-52.0); Hemoglobin 12.5 g/dL (13.0-18.0); Mean Corp Hgb Conc. 35.6 g/dL (33.0-37.0); Mean Corpuscular Volume 90.7 fL (80.0-94.0); Platelet Count 158 10^3/uL (130-400); Red Cell Dist. Width 12.5 % (11.5-14.5)
[2025-04-01 06:45] LABS: Blood Urea Nitrogen 16 mg/dl (9-20); Calcium 8.3 mg/dl (8.4-10.2); Carbon Dioxide 22 mmol/L (22-30); Chloride 112 mmol/L (98-107); Estimated Creatinine Clearance 101 ml/min; Glucose 116 mg/dl (70-99); Potassium 3.4 mmol/L (3.5-5.1); Sodium 137 mmol/L (135-145); eGFR > 60.00
[2025-04-01] MEDS: DECADRON 6 MG IV (08:40)
[2025-04-01] MEDS: TORADOL 15 MG IV ×2 (08:41→16:25)
[2025-04-01] MEDS: PACERONE 200 MG PO (08:44)
[2025-04-01] MEDS: ZOVIRAX 400 MG PO (08:47)
[2025-04-01] MEDS: MUCINEX 600 MG PO ×2 (08:47→19:19)
[2025-04-01] MEDS: NAMENDA 10 MG PO ×2 (08:48→19:19)
[2025-04-01] MEDS: VIBRAMYCIN 100 MG PO (08:49)
[2025-04-01] MEDS: ELIQUIS 5 MG PO ×2 (08:49→19:18)
[2025-04-01] MEDS: KCL ELIXIR 40 MEQ PO (10:26)
[2025-04-01] MEDS: TESSALON PERLES 200 MG PO (10:27)
--- NOTE | 2025-04-01 12:55 | CM ---
Patient continues on COVID restrictions. Patient plan is to return to SNF; [facility] memory care or appropriate bed at SNF when medically appropriate. Patient will need ambulance transportation at that time. CM will continue to follow for discharge
planning needs.
Plan; return to SNF; [facility]
--- NOTE | 2025-04-01 13:48 | W.PN.HOSP.TC ---
Today's Communication/Plan
-
Plan to discharge back to SNF once cleared by cardiology and bradycardia improves.
Assessment / Plan
Assessment / Plan
Impression:
74 y/o M hx of dementia, multiple myeloma with osteolytic lesions, HLD presents to ER from [facility] with back pain, tachycardia and hypotension. Patient also noted to have fever for a few days and sore throat, feeling cold/tired. He is more
confused than baseline and was briefly agitated. Given patients dementia - history was limited at present but grossly denies any other complaints. In ER, testing revealed COVID with possible LLL PNA. Patient admitted for hydration and treatment.
Patient remains tachycardiac, cardiology consulted.
1/2 blood culture positive, ID consulted.
Patient noted to have atrial flutter with RVR.
Started on Cardizem and amiodarone drips.
Converted to sinus rhythm and currently bradycardia.
Cardizem and amiodarone switched to oral but now on hold.
Patient also started on Eliquis.
Assessment/plan:
Severe sepsis with acute organ dysfunction POA (tachycardia, hypotension)
Source of infection acute COVID-19 infection
Acute LL PNA with wheezing
- check CT-PE study given prolonged hypotension, tachycardia and COVID+ status
- start Remdesivir, steroids, CAP treatment
- monitor O2 - currently on none
- IS/Acapella/Mucolytics as able (hx of dementia with confusion)
- Acute organ dysfunction in form of acute metabolic encephalopathy, elevated troponin.
04/01
Patient completed remdesivir.
Patient completed Rocephin/Doxy
Received IV dexamethasone, transition to oral dexamethasone for additional 3-days
Atrial flutter with RVR
IV fluid.
seen by cardiology
Was given Zaroxolyn with no
started amiodarone/diltiazem now on oral.
Hold Diovan
echo shows:
1. Mildly decreased left ventricular function
2. Ejection fraction is 45-50% by Palmer's method of discs.
3. Right ventricular size and systolic function are within normal limits.
4. Trileaflet, mildly sclerotic aortic valve. There is adequate leaflet excursion.
5. Trace aortic regurgitation.
6. Mild mitral valve regurgitation.
7. Mild tricuspid regurgitation.
8. Tricuspid valve opens normally. mild tricuspid regurgitation. Estimated pulmonary artery pressure of 26 mmHg assuming a right atrial pressure of 3 mmHg.
03/30
Converted to sinus rhythm and currently bradycardia.
Morning Cardizem and amiodarone held
03/31
Still bradycardic
04/01
Need to follow with cardiology commendation regarding heart rate control medication and discharge.
Currently on amiodarone 200 mg daily
Will be discharged on Eliquis
Acute metabolic encephalopathy in setting of COVID/PNA
Underlying history of dementia
- continue dementia meds
Nonischemic myocardial injury
- trop trends to peak
Hx of multiple myeloma with osteolytic lesions
- hold Morphine
- continue Baclofen HS
- on Acyclovir daily prophylaxis
Essential HTN -
Hold Diovan
HLD
continue statin
CODE STATUS: Full code
DVT prophylaxis: Lovenox
Diet: cardiac diet- soft diet.
Disposition: Plan to discharge back to SNF once cleared by cardiology and bradycardia improves.
Family communication: Discussed with son at bedside.
Total time spent on today's encounter was 65 minutes which included time spent in counseling the patient/family regarding diagnosis and treatment plan as listed above, goals of care, and symptom management. Case was discussed with nursing staff,
specialists, and care coordinators/case management. All labs and imaging personally reviewed by me. Remainder the time spent in detailed review of previous records, lab data, imaging, and other medical provider documentation.
Anticipated Discharge: 24 - 48 hours
Subjective/Interval History
-
Date of Service: April 01, 2025
Patient is confused, trying to get out of bed-but bradycardia improved, s/p Lasix by cardiology yesterday.
Objective Data
-
Labs:
Laboratory Results
04/01/25
05:54
WBC 7.2
Hgb 12.5 L
Hct 35.1 L
Plt Count 158
Sodium 137
Potassium 3.4 L
Chloride 112 H
Carbon Dioxide 22
BUN 16
Creatinine 0.6 L
Glucose 116 H
Calcium 8.3 L
Vital Signs:
Vital Signs
Temp Pulse Resp BP Pulse Ox
97.9 F 52 16 117/70 96
04/01/25 02:10 04/01/25 13:46 03/31/25 11:38 04/01/25 13:46 04/01/25 11:32
I&O
03/31/25 04/01/25 04/02/25
06:59 06:59 06:59
Intake Total 180 / 180 480 / 480
Output Total 975 / 975 1625 / 1625 450 / 450
Balance -975 / -975 -1445 / -1445
Physical Exam
-
General: Well Nourished and Comfortable
HEENT: Normocephalic, Atraumatic, Moist Mucous Membranes, No Ptosis, PERRLA and Nose Appears Normal
Respiratory: Wheezes, Rales, Rhonchi and Non Labored Respirations
Cardiac: Regular Rhythm, S1/S2 and Bradycardic
Breast: Deferred by me
GI: Soft, Nontender, Nondistended and Normal Bowel Sounds
Genito-urinary: No Costovertebral Tender
Musculoskeletal: No Clubbing, No Cyanosis and No Edema
Skin: Warm
Neuro: Awake
Psych: Confused and Agitated
Data Reviewed
-
Diagnostic Radiology: Image personally visualized and interpreted and Report Reviewed by me
CT Scan: Image personally visualized and interpreted and Report Reviewed by me
Ultrasound: Image personally visualized and interpreted and Report Reviewed by me
MRI: Image personally visualized and interpreted and Report Reviewed by me
Medical Tests (Nuc Med, Echo etc): Image personally visualized and interpreted and Report Reviewed by me
Labs: Labs Reviewed by me
Old Records: Reviewed
[2025-04-01] MEDS: HALDOL 2 MG IM ×2 (16:28→22:32)
--- NOTE | 2025-04-01 16:55 | W.PN.CARDCBS ---
Today's Communication / Plan
-
Sinus bradycardia which appears to be asymptomatic. Reduce amiodarone to 100 mg daily. Follow.
Did well with 1 dose of IV Lasix on 03/31/2025. Continue to follow.
Impression / Plan
-
Primary Client Leader: none prior to admission
Assessment:
Presentation with hypotension, tachycardia
Typical atrial flutter with RVR, new diagnosis
Tachy bradycardia/sick sinus syndrome
Sepsis
Covid PNA
Elevated troponin, suspected nonischemic myocardial injury
LBBB
Multiple Myeloma with known osteolytic lesions
Dementia
HTN
HLD
DNR code status
ECHO 03/28/25: EF 45 to 50%, trace AR, mild MR, mild TR
Plan:
Patient presented with fever, sore throat, hypotension, tachycardia from [facility] and tested COVID-positive and with evidence of pneumonia by CXR and sepsis.
- Cardiology consulted as noted to have typical atrial flutter with RVR, new diagnosis for patient and asymptomatic
He converted to SR/SB 03/29. He remains miranda on review of tele overnight which was independently reviewed by me. No pauses.
Given bradycardia diltiazem discontinued during this hospital stay.
Amiodarone transiently held and then decreased to 200 mg daily. Heart rates continue to be 40s to 50s sinus bradycardia. I have reduced amiodarone to 100 mg daily, 04/01/2025
Continue to follow but high risk of need for future pacemaker.
Most recent EKG reviewed 04/01/2025 QTc stable.
After discussion with family 03/28, he was started on eliquis 5mg BID.
- History of orthostatic hypotension
Blood pressure remains normal/elevated and midodrine was decreased to 5 mg 3 times daily. Hold parameters in place.
-Cardiomyopathy echo with results as above, EF 45%
In the setting of COVID-pneumonia and sepsis. Continue to follow.
Continue conservative treatment.
proBNP ordered given exam is difficult. proBNP 03/31/2025 was 5140. 1 dose 20 mg IV Lasix given 03/31/2025 with good urine output. Follow.
-Suspected non-ischemic troponin elevation
On admission trops mildly elevated, but relatively flat in 0.05-0.07 range. Asymptomatic.
Continue conservative management.
He has LBBB by EKGs, no prior to compare
-Sepsis/COVID-pneumonia
Continue treatment of covid PNA with remdesivir, steroids, and abx
-Dementia
- d/w nursing. I have independently reviewed telemetry, EKGs, lab work.
Progress Note - Client Leader
Subjective
Date of Service: April 01, 2025
He is cold. He has dementia
Objective
Labs:
04/01/25 05:54
04/01/25 05:54
Labs
Hgb 12.5 g/dL (13.0-18.0) L 04/01/25 05:54
Hct 35.1 % (39.0-52.0) L 04/01/25 05:54
Plt Count 158 10^3/uL (130-400) 04/01/25 05:54
APTT 36.9 Sec (23.4-35.0) H 03/28/25 01:58
Sodium 137 mmol/L (135-145) 04/01/25 05:54
Potassium 3.4 mmol/L (3.5-5.1) L 04/01/25 05:54
BUN 16 mg/dl (9-20) 04/01/25 05:54
Creatinine 0.6 mg/dL (0.7-1.3) L 04/01/25 05:54
Glucose 116 mg/dl (70-99) H 04/01/25 05:54
Vital Signs and I&O:
Vital Signs
Temp Pulse Resp BP Pulse Ox
99.2 F 52 16 117/70 96
04/01/25 11:35 04/01/25 13:46 03/31/25 11:38 04/01/25 13:46 04/01/25 11:32
Vital Signs
Temp Pulse Resp BP Pulse Ox
99.2 F 52 16 117/70 96
04/01/25 11:35 04/01/25 13:46 03/31/25 11:38 04/01/25 13:46 04/01/25 11:32
Intake & Output
03/30/25 03/31/25 04/01/25 04/02/25
06:59 06:59 06:59 06:59
Intake Total 180 / 180 480 / 480
Output Total 975 / 975 1625 / 1625 450 / 450
Balance -10 10 -975 / -975 -1445 / -1445 30 / 30
Physical Exam
Physical Exam
General: Elderly male with some confusion.
Heart: Distant heart sounds regular
Lungs: Coarse anterior breath sounds with cough
Extremities: No clubbing, cyanosis and trace edema bilaterally.
Neuro: Grossly nonfocal, awake, alert and oriented x3.
[2025-04-01] MEDS: VALIUM INJECTION 2 MG IV (17:54)
[2025-04-01] MEDS: CRESTOR 5 MG PO (17:55)
[2025-04-01] MEDS: ARICEPT 10 MG PO (19:18)
[2025-04-01] MEDS: LIORESAL 5 MG PO (19:18)
[2025-04-01] MEDS: TYLENOL 650 MG PO (19:18)
[2025-04-01] MEDS: MELATONIN 5 MG PO (19:19)
[2025-04-01] MEDS: LIDOCAINE 4% PATCH 1 PATCH TOPICAL (21:00)
[2025-04-02] VITALS (17 sets, daily range): BP systolic 109–150; BP diastolic 44–90; PULSE 59; O2SAT 95; BMI 27.5
[2025-04-02] MEDS: TORADOL 15 MG IV (02:22)
--- NOTE | 2025-04-02 05:19 | PTCARENOTE ---
Patient restless throughout the night. Did not sleep longer than 15 minutes at a time. PRN haldol + melatonin ineffective. Tylenol and toradol given for back pain. Remains a 1:1 for safety. Will continue to monitor.
--- NOTE | 2025-04-02 08:00 | PTCARENOTE ---
Received patient A&Ox1 to self, confused and forgetful but redirectable, sitter 1:1 for safety as patient doesn't ask for help when get up, SB w/ wide QRS complex, BP WNL, on RA, coarse and diminished lung sounds, frequent nonproductive cough, GI/
continent w/ 1 person assistance.
[2025-04-02] MEDS: MUCINEX 600 MG PO ×2 (09:17→20:29)
[2025-04-02] MEDS: ELIQUIS 5 MG PO ×2 (09:17→20:29)
[2025-04-02] MEDS: ZOVIRAX 400 MG PO (09:18)
[2025-04-02] MEDS: NAMENDA 10 MG PO ×2 (09:18→20:29)
[2025-04-02] MEDS: PACERONE 100 MG PO (09:18)
[2025-04-02] MEDS: DECADRON 6 MG PO (09:20)
--- NOTE | 2025-04-02 10:00 | W.PN.CARDCBS ---
Today's Communication / Plan
-
No Lasix today
Continue to follow volume status
Continue low-dose amiodarone
Continue apixaban
Discharge planning
Impression / Plan
-
Primary Chute Tender: none prior to admission
Assessment:
Presentation with hypotension, tachycardia
Mild heart failure with mildly reduced ejection fraction
Typical atrial flutter with RVR, new diagnosis
Tachy bradycardia/sick sinus syndrome
Sepsis
Covid PNA
Elevated troponin, suspected nonischemic myocardial injury
LBBB
Multiple Myeloma with known osteolytic lesions
Dementia
HTN
HLD
DNR code status
ECHO 03/28/25: EF 45 to 50%, trace AR, mild MR, mild TR
Plan:
Overall, he seems relatively stable from a cardiac standpoint. Volume status is reasonable. I would not give additional furosemide IV at present. He might benefit from a low-dose of oral furosemide but will watch for now.
We could consider addition of spironolactone and SGLT2 antagonist, but at this point I am leaning towards a conservative strategy.
He remains in sinus rhythm/sinus bradycardia with some nonsustained VT. Amiodarone has been reduced to 100 mg a day. Avoid beta-erick related to his bradycardia.
Treatment of pneumonia/COVID per primary team
Would not pursue mildly elevated troponin further.
From cardiac standpoint okay to begin discharge planning.
Progress Note - Chute Tender
Subjective
Date of Service: April 02, 2025:
74-year-old man resides in a group home and admitted with pneumonia/clinical sepsis, COVID-positive, at the time of diagnosis found to have new onset atrial flutter with rapid RVR and converted to sinus rhythm, started on amiodarone
PMH: Orthostatic hypotension,, multiple myeloma with osteolytic lesions, dementia, hypertension, hyperlipidemia, DNR, nonischemic myocardial injury, tachybradycardia, left bundle branch block
Current meds: Acyclovir, Aricept, Namenda, rosuvastatin 5 mg a day, Mucinex, apixaban 5 twice daily, midodrine 5 3 times daily, lidocaine patch, dexamethasone, amiodarone 100 mg a day
145/78, pulse 55, respirate 14, afebrile, pleasant, appears relatively comfortable, diminished breath sounds in bases JVD probably okay regular rate and rhythm without murmurs or gallops, abdomen benign extremities 1+ nonpitting edema
ECG today sinus bradycardia left bundle
Labs are pending yesterday hemoglobin 12.5, BUN/creatinine 16 and 0.6, potassium 3.4, proBNP was 5140, troponin was 0.077
Objective
Labs:
Labs
Hgb 12.5 g/dL (13.0-18.0) L 04/01/25 05:54
Hct 35.1 % (39.0-52.0) L 04/01/25 05:54
Plt Count 158 10^3/uL (130-400) 04/01/25 05:54
APTT 36.9 Sec (23.4-35.0) H 03/28/25 01:58
Sodium 137 mmol/L (135-145) 04/01/25 05:54
Potassium 3.4 mmol/L (3.5-5.1) L 04/01/25 05:54
BUN 16 mg/dl (9-20) 04/01/25 05:54
Creatinine 0.6 mg/dL (0.7-1.3) L 04/01/25 05:54
Glucose 116 mg/dl (70-99) H 04/01/25 05:54
Vital Signs and I&O:
Vital Signs
Temp Pulse Resp BP Pulse Ox
36.5 C 55 14 145/78 97
04/02/25 07:41 04/02/25 09:19 04/02/25 04:50 04/02/25 09:19 04/01/25 20:00
Vital Signs
Temp Pulse Resp BP Pulse Ox
36.5 C 55 14 145/78 97
04/02/25 07:41 04/02/25 09:19 04/02/25 04:50 04/02/25 09:19 04/01/25 20:00
Intake & Output
03/31/25 04/01/25 04/02/25 04/03/25
07:59 07:59 07:59 07:59
Intake Total 180 / 180 480 / 480
Output Total 975 / 975 1725 / 1725 950 / 950
Balance -975 / -975 -1545 / -1545 -470 / -470
Physical Exam
Physical Exam
See above
[2025-04-02 10:31] LABS: Hematocrit 36.0 % (39.0-52.0); Hemoglobin 13.2 g/dL (13.0-18.0); Mean Corp Hgb Conc. 36.7 g/dL (33.0-37.0); Mean Corpuscular Volume 90.7 fL (80.0-94.0); Platelet Count 162 10^3/uL (130-400); Red Cell Dist. Width 12.6 % (11.5-14.5)
--- NOTE | 2025-04-02 13:21 | PTCARENOTE ---
Reassessed the patient, no changes from previous assessments, total patient care done. Gera Smith called and updates given. Per Son Luis, okay to give patient's Anastasia Gallegos updates when she calls. Son is the PRIMARY DECISION MAKER if
anything changes.
[2025-04-02 13:30] LABS: Blood Urea Nitrogen 15 mg/dl (9-20); Calcium 8.4 mg/dl (8.4-10.2); Carbon Dioxide 22 mmol/L (22-30); Chloride 109 mmol/L (98-107); Estimated Creatinine Clearance 101 ml/min; Glucose 107 mg/dl (70-99); Potassium 4.1 mmol/L (3.5-5.1); Sodium 136 mmol/L (135-145); eGFR > 60.00
--- NOTE | 2025-04-02 14:28 | W.PN.HOSP.TC ---
Today's Communication/Plan
-
possible dc in 24 hours
Assessment / Plan
Assessment / Plan
Assessment:
Sepsis POA (tachycardia, hypotension)
Acute COVID-19 infection
Acute LL PNA with wheezing
- CT-PE study without clot
- s/p Remdesivir
- s/p antibiotic course
- complete oral Decadron, day 04/01
- monitor O2 - currently on none
- IS/Acapella/Mucolytics as able (hx of dementia with confusion)
A. Flutter with RVR
- continue Amiodarone; in sinus rhythm
- continue Eliquis
- Echo: EF 45-50%, mild valvular heart disease
TME in seting of COVID/PNA
Underlying history of dementia
- continue dementia meds
Nonischemic myocardial injury
- trop trends to peak
Hx of multiple myeloma with osteolytic lesions
- hold Morphine
- continue Baclofen HS
- on Acyclovir daily prophylaxis
Essential HTN
- off ARB
- midodrine with parameters
HLD - statin
DVT ppx: Eliquis
Code: Full
Anticipated Discharge: Within 24 hours
Subjective/Interval History
-
Date of Service: April 02, 2025
resting comfortably
on room air
denies any complaints
Objective Data
-
Labs:
Laboratory Results
04/02/25 04/02/25 04/02/25
09:52 12:06 12:06
WBC 7.9
Hgb 13.2
Hct 36.0 L
Plt Count 162
Sodium Cancelled Cancelled Cancelled
Potassium Cancelled Cancelled
Chloride Cancelled
Carbon Dioxide Cancelled
BUN Cancelled
Creatinine Cancelled
Glucose Cancelled
Calcium Cancelled
04/02/25 04/02/25 04/02/25
12:06 12:06 12:06
WBC
Hgb
Hct
Plt Count
Sodium
Potassium Cancelled
Chloride Cancelled Cancelled
Carbon Dioxide Cancelled Cancelled
BUN Cancelled
Creatinine
Glucose
Calcium
04/02/25 04/02/25 04/02/25
12:06 12:06 12:06
WBC
Hgb
Hct
Plt Count
Sodium
Potassium
Chloride
Carbon Dioxide
BUN Cancelled
Creatinine Cancelled Cancelled
Glucose Cancelled Cancelled
Calcium Cancelled
04/02/25 04/02/25
12:06 12:42
WBC
Hgb
Hct
Plt Count
Sodium 136
Potassium 4.1
Chloride 109 H
Carbon Dioxide 22
BUN 15
Creatinine 0.6 L
Glucose 107 H
Calcium Cancelled 8.4
Vital Signs:
Vital Signs
Temp Pulse Resp BP Pulse Ox
98 F 53 23 126/75 95
04/02/25 12:00 04/02/25 13:12 04/02/25 12:00 04/02/25 13:12 04/02/25 12:00
I&O
04/01/25 04/02/25 04/03/25
06:59 06:59 06:59
Intake Total 180 / 180 480 / 480 360 / 360
Output Total 1625 / 1625 1050 / 1050 750 / 750
Balance -1445 / -1445 -570 / -570 -390 / -390
Physical Exam
-
General: No Apparent Distress
HEENT: Normocephalic and Atraumatic
Respiratory: Negative Wheezes
Cardiac: Regular Rhythm and S1/S2
GI: Soft
Neuro: Awake
Psych: Calm
Data Reviewed
-
Total Time Spent with Patient (in minutes): 42
Labs: Labs Reviewed by me
--- NOTE | 2025-04-02 16:00 | CM ---
CM reviewed pt with attending- ADC 1-2 days
Pt remains on 1:1 for trying to get out of bed, no aggressive behaviors
Update to [facility] admissions
She noted pt can return on 1:1 as along as no restraints/aggressive behaviors
Discharge Disposition- return [facility] LTC
--- NOTE | 2025-04-02 16:14 | PTCARENOTE ---
Reassessed the patient, no changes from previous assessments. Pt remains confused, forgetful but redirectable. Pt needs frequent reorientation.
[2025-04-02] MEDS: TYLENOL 650 MG PO ×2 (16:29→20:29)
[2025-04-02] MEDS: TESSALON PERLES 200 MG PO (16:30)
[2025-04-02] MEDS: CRESTOR 5 MG PO (17:47)
[2025-04-02] MEDS: MELATONIN 5 MG PO (20:29)
[2025-04-02] MEDS: LIDOCAINE 4% PATCH 1 PATCH TOPICAL (20:29)
[2025-04-02] MEDS: LIORESAL 5 MG PO (20:34)
[2025-04-02] MEDS: ARICEPT 10 MG PO (20:34)
[2025-04-03 01:44] VITALS: BP 133/91
[2025-04-03 02:00] VITALS: BP 136/71
[2025-04-03 04:21] VITALS: BP 123/79
--- NOTE | 2025-04-03 04:24 | PTCARENOTE ---
Patient found playing with his feces overnight and rubbing the feces all over the siderails. Patient also attempted to floss teeth with urinal. Remains a 1:1. Will continue to monitor.
[2025-04-03 04:27] LABS: Hematocrit 40.0 % (39.0-52.0); Hemoglobin 14.8 g/dL (13.0-18.0); Mean Corp Hgb Conc. 37.0 g/dL (33.0-37.0); Mean Corpuscular Volume 90.9 fL (80.0-94.0); Platelet Count 170 10^3/uL (130-400); Red Cell Dist. Width 12.8 % (11.5-14.5)
[2025-04-03 04:58] LABS: Blood Urea Nitrogen 14 mg/dl (9-20); Calcium 8.8 mg/dl (8.4-10.2); Carbon Dioxide 22 mmol/L (22-30); Chloride 110 mmol/L (98-107); Estimated Creatinine Clearance 101 ml/min; Glucose 109 mg/dl (70-99); Potassium 4.0 mmol/L (3.5-5.1); Sodium 137 mmol/L (135-145); eGFR > 60.00
[2025-04-03 06:00] VITALS: BMI 27.6
[2025-04-03 08:12] VITALS: BP 129/75
[2025-04-03] MEDS: ZOVIRAX 400 MG PO (08:42)
[2025-04-03] MEDS: MUCINEX 600 MG PO (08:43)
[2025-04-03] MEDS: NAMENDA 10 MG PO (08:43)
[2025-04-03] MEDS: PACERONE 100 MG PO (08:43)
[2025-04-03] MEDS: ELIQUIS 5 MG PO (08:43)
[2025-04-03] MEDS: DECADRON 6 MG PO (08:43)
[2025-04-03] MEDS: TESSALON PERLES 200 MG PO (08:43)
--- NOTE | 2025-04-03 10:12 | W.PN.UPDATE ---
Update Note
Progress Note Update
Planning for discharge today. Continue amiodarone 100mg daily and eliquis 5mg BID. Would plan to discharge on p.o. Lasix 20 mg as needed for weight gain or worsening shortness of breath. Will reassess volume status at outpatient cardiac follow-up
which has been arranged. will sign off, please call with questions. d/w hospitalist
[2025-04-03 10:28] VITALS: BP 144/79
--- NOTE | 2025-04-03 11:03 | CM ---
CM reviewed pt with attending- ready for dc
Return bed confirmed with Noel/CHARU
Update to son over phone- IMM verbally reviewed
He does not wish to appeal- copy to provided with dc paperwork per his request
Son with COVID symptoms and unable to complete bedside visit today
Medical necessity completed- BLS scheduled for 1330 pickup
Discharge Disposition- return to [facility] via BLS (1330 pickup)
Phone- [phone] Fax- [phone]
--- NOTE | 2025-04-03 11:29 | W.PN.HOSP.TC ---
Today's Communication/Plan
-
dc to SNF
Assessment / Plan
Assessment / Plan
Assessment:
Sepsis POA (tachycardia, hypotension)
Acute COVID-19 infection
Acute LL PNA with wheezing
- CT-PE study without clot
- s/p Remdesivir
- s/p antibiotic course
- complete oral Decadron, day 05/02
- monitor O2 - currently on none
- IS/Acapella/Mucolytics as able (hx of dementia with confusion)
A. Flutter with RVR
- continue Amiodarone; in sinus rhythm
- continue Eliquis
- Echo: EF 45-50%, mild valvular heart disease
- prn Lasix 20mg daily for weight gain
TME in seting of COVID/PNA
Underlying history of dementia
- continue dementia meds
Nonischemic myocardial injury
- trop trends to peak
Hx of multiple myeloma with osteolytic lesions
- hold Morphine
- continue Baclofen HS
- on Acyclovir daily prophylaxis
Essential HTN
- off ARB
- midodrine with parameters
HLD - statin
DVT ppx: Eliquis
Code: Full
More than 30 minutes spent in discharge including
Final examination of the patient
Summarizing hospital stay
Instructions for continuing care to all relevant caregivers
Preparation of discharge records, prescriptions, and referral forms
Total time spent (in minutes): 41
Anticipated Discharge: Today
Subjective/Interval History
-
Date of Service: April 03, 2025
resting comfortably, no complaints at present
Objective Data
-
Labs:
Laboratory Results
04/03/25
04:18
WBC 9.0
Hgb 14.8
Hct 40.0
Plt Count 170
Sodium 137
Potassium 4.0
Chloride 110 H
Carbon Dioxide 22
BUN 14
Creatinine 0.5 L
Glucose 109 H
Calcium 8.8
Vital Signs:
Vital Signs
Temp Pulse Resp BP Pulse Ox
97.9 F 77 18 129/75 97
04/03/25 07:55 04/03/25 08:43 04/03/25 08:12 04/03/25 08:43 04/03/25 08:00
I&O
04/02/25 04/03/25 04/04/25
06:59 06:59 06:59
Intake Total 480 / 480 1140 / 1140
Output Total 1050 / 1050 2250 / 2250 125 / 125
Balance -570 / -570 -1110 / -1110 -125 / -125
Physical Exam
-
General: No Apparent Distress
HEENT: Normocephalic and Atraumatic
Respiratory: Negative Wheezes
Cardiac: Regular Rhythm and S1/S2
GI: Soft
Musculoskeletal: No Edema
Neuro: AO x 3
Psych: Calm
Data Reviewed
-
Total Time Spent with Patient (in minutes): 41
Labs: Labs Reviewed by me
--- NOTE | 2025-04-03 11:40 | W.DS.TRANS ---
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
-
Discharge Instructions:
Discharge Diagnosis/Procedures COVID-19 infection, pneumonia, Atrial Flutter
Diet Supplements,Low Sodium
Additional Diets [id number] diet
Activity As tolerated
Bathing Restrictions None
Other Services PT,OT
Specialty Instructions Weigh Daily
Instructions: *[facility] Heart Failure Instructions
Stand-Alone Forms:
Changes to Home Medications: No
Discharge Medications:
DC Medications w/original date entered in [email or web address]
acetaminophen 325 mg tablet (Tylenol) 650 mg PO Q4HPRN PRN mild pain 03/26/25
acyclovir 400 mg tablet 400 mg PO DAILY Immunocompromised PPX 03/26/25
baclofen 5 mg tablet 5 mg PO HS Neurological Condition 03/26/25
bisacodyl 10 mg rectal suppository (Dulcolax (bisacodyl)) 10 mg VA [id number] PRN if no bm aftr mom 03/26/25
calcium 600 mg (as carbonate)-vitamin D3 10 mcg (400 unit) tablet (Calcium 600 + D(3)) 1 tab PO DAILY Supplement 03/26/25
cholecalciferol (vitamin D3) 50 mcg (2,000 unit) capsule (Vitamin D3) 50 mcg PO DAILY Supplement 03/26/25
donepezil 10 mg tablet 10 mg PO HS Neurological Condition 03/26/25
magnesium hydroxide 400 mg/5 mL oral suspension (Milk of Magnesia) 2,400 mg PO HSPRN PRN constipation 03/26/25
memantine 10 mg tablet 10 mg PO BID Neurological Condition 03/26/25
polyethylene glycol 3350 17 gram oral powder packet (Miralax) 17 g PO DAILY Constipation 03/26/25
rosuvastatin 5 mg tablet (Crestor) 5 mg PO QPM High Cholesterol 03/26/25
therapeutic multivitamin 1 tab PO DAILY Supplement 03/26/25
vortioxetine 5 mg tablet (Trintellix) 15 mg PO HS Mental Health/Anxiety 03/26/25
amiodarone 200 mg tablet (Pacerone) 100 mg (1/2 x 200 mg) PO DAILY #100 tabs 04/03/25
apixaban 5 mg tablet (Eliquis) 5 mg PO BID #60 tabs 04/03/25
dexamethasone 2 mg tablet 6 mg (3 x 2 mg) PO DAILY #3 tabs 04/03/25
furosemide 20 mg tablet (Lasix) 20 mg PO DAILY PRN Weight gain #30 tabs 04/03/25
midodrine 5 mg tablet 5 mg PO TID@0800,1300,1800 #90 tabs 04/03/25
morphine 15 mg immediate release tablet 15 mg PO Q4HPRN PRN severe pains #10 tabs 04/03/25
morphine 15 mg tablet,extended release 15 mg PO Q12H Pain #10 tabs 04/03/25
Home Medication Changes
Pending Results: No
Total time spent discharging patient (in min): 41
--- NOTE | 2025-04-03 11:41 | PTCARENOTE ---
Patient AOx1 (self). Patient is confused and forgetful. Attempts to get OOB by himself and does not utilize the call robertson. 1:1 ordered for safety. Bed alarm on and audible. On RA with SpO2 greater than 92%. Frequent dry cough. PRN cough medicine
given per OCT. Sinus miranda with BBB and prolonged QT on monitor. BP stable. Continent to bladder. No BM's during shift. Poor appetite. COVID-19 precautions maintained. Call robertson within reach, bed in lowest position, and bed of wheels locked.
[2025-04-03 12:08] VITALS: BP 126/64
--- NOTE | 2025-04-03 13:51 | PTCARENOTE ---
Patient transferred to [facility] by acute care. Verbal report given to Sebastian at [facility]. Patient belongings transferred with patient.
== END 2025-04-03 13:51 | DRG 871 ==
LOC: IMU 17:18
PROVIDERS: General Practice; Nurse Practitioner Family; Physician Assistant; ADMITTING PHYSICIAN Internal Medicine; EMERGENCY PHYSICIAN Emergency Medicine; FAMILY PHYSICIAN Family Medicine; OTHER PHYSICIAN Hospitalist; OTHER PHYSICIAN Internal Medicine Cardiovascular Disease
DX: A41.89 Other specified sepsis (principal); G92.8 Other toxic encephalopathy; U07.1 COVID-19; J12.82 Pneumonia due to coronavirus disease 2019; I48.92 Unspecified atrial flutter; I5A Non-ischemic myocardial injury (non-traumatic); C90.00 Multiple myeloma not having achieved remission; J98.11 Atelectasis; F03.90 Unspecified dementia, unspecified severity, without behavioral disturbance, psychotic disturbance, mood disturbance, and anxiety; I10 Essential (primary) hypertension; E78.00 Pure hypercholesterolemia, unspecified; G89.3 Neoplasm related pain (acute) (chronic); I44.7 Left bundle-branch block, unspecified; Z66 Do not resuscitate; Z79.899 Other long term (current) drug therapy
CPT/HCPCS: 71046; 71275; 80048; 80053; 81003; 81015; 83605; 83735; 83880; 84484; 85025; 85027; 85730; 87040; 87070; 87147; 87154; 87205; 87811; 92526; 92610; 93005; 93306; 94640; 96360; 97116; 97163; 97166; 97530; 97535; 99285; J0248; J1160; Q9950; Q9967

== ENCOUNTER → 2025-04-05 11:24 | Outpatient (REF) | payer OTHER, MEDICARE, SELFPAY ==
[2025-04-05 12:37] LABS: Hematocrit 38.8 % (39.0-52.0); Hemoglobin 13.4 g/dL (13.0-18.0); Mean Corp Hgb Conc. 34.5 g/dL (33.0-37.0); Mean Corpuscular Volume 96.5 fL (80.0-94.0); Nucleated Red Blood Cells % 0 % (-); Platelet Count 149 10^3/uL (130-400); Red Cell Dist. Width 13.6 % (11.5-14.5)
[2025-04-05 13:26] LABS: ALT (SGPT) 37 U/L (0-50); AST (SGOT) 17 U/L (17-59); Albumin 2.9 g/dl (3.5-5.0); Alkaline Phosphatase 41 U/L (38-126); Blood Urea Nitrogen 23 mg/dl (9-20); Calcium 8.5 mg/dl (8.4-10.2); Carbon Dioxide 25 mmol/L (22-30); Chloride 106 mmol/L (98-107); Glucose 96 mg/dl (70-99); Potassium 4.1 mmol/L (3.5-5.1); Sodium 135 mmol/L (135-145); Total Protein 5.1 g/dl (6.3-8.2); eGFR > 60.00
[2025-04-05 13:55] LABS: TSH 0.92 uIU/ml (0.47-4.68)
== END ==
LOC: OLABN 11:24
PROVIDERS: ATTENDING PHYSICIAN Student in an Organized Health Care Education/Training Program
DX: R00.0 Tachycardia, unspecified (principal)
CPT/HCPCS: 36415; 80053; 84443; 85025

== ENCOUNTER → 2025-04-11 11:00 | Outpatient (REF) | payer OTHER, MEDICARE, SELFPAY ==
[2025-04-11 11:53] LABS: Hematocrit 44.4 % (39.0-52.0); Hemoglobin 14.6 g/dL (13.0-18.0); Mean Corp Hgb Conc. 32.9 g/dL (33.0-37.0); Mean Corpuscular Volume 99.1 fL (80.0-94.0); Nucleated Red Blood Cells % 0 % (-); Platelet Count 139 10^3/uL (130-400); Red Cell Dist. Width 13.9 % (11.5-14.5)
[2025-04-11 12:00] LABS: ALT (SGPT) 32 U/L (0-50); AST (SGOT) 21 U/L (17-59); Albumin 3.5 g/dl (3.5-5.0); Alkaline Phosphatase 63 U/L (38-126); Blood Urea Nitrogen 20 mg/dl (9-20); Calcium 9.5 mg/dl (8.4-10.2); Carbon Dioxide 25 mmol/L (22-30); Chloride 108 mmol/L (98-107); Glucose 86 mg/dl (70-99); Magnesium 2.6 mg/dl (1.6-2.3); Potassium 4.6 mmol/L (3.5-5.1); Sodium 137 mmol/L (135-145); Total Protein 6.2 g/dl (6.3-8.2); eGFR > 60.00
== END ==
LOC: OLABN 11:00
PROVIDERS: ATTENDING PHYSICIAN Student in an Organized Health Care Education/Training Program
DX: R00.1 Bradycardia, unspecified (principal)
CPT/HCPCS: 36415; 80053; 83735; 85025